=== PATIENT | female | born 1975 | race Caucasian/White ===

== ENCOUNTER 2019-07-01 10:33 | Emergency (ER) | payer BC, SELFPAY ==
[2019-07-01 11:03] VITALS: BP 130/82; PULSE 60; RESP 20; TEMP 37.4; O2SAT 96
--- NOTE | 2019-07-01 12:14 | ED.URI ---
HPI - URI/Sore Throat General Chief Complaint: Upper Respiratory Infection Stated Complaint: Cold/Flu symptoms/Fever Time Seen by Provider: 07/01/19 12:14 Source: patient and RN notes reviewed Mode of arrival: ambulatory Limitations: no limitations History of Present Illness HPI Narrative: 43-year-old female who presents to express care with complaints of cough, chills, chest aching with cough since yesterday and fever noted this morning of 102.F Patient states that she has had sinus pressure and ear pressure for the past 2 weeks. Patient denies any shortness of breath or any wheezing with lungs clear to accusation,SAO2 96% on room air. Patient states that she did not take a flu shot this year, also admits to tobacco abuse of 1 pack/day since age 18. MD elicited complaint: fever, cough, rhinorrhea, nasal congestion, sinus pain and other (ear pressure) Onset (ago): day(s) (1, 2 weeks of ear pressure nasal drainage) Consistency: constant Severity: moderate Pain scale (0-10): 4 Description of mucous: clear Able to tolerate fluids by mouth: Yes Exacerbating factors: changing head position and leaning forward Relieving factors: nothing Associated symptoms: fever, chills, myalgias, rhinorrhea, nasal congestion, cough and ear pain Treatments prior to arrival: acetaminophen Related Data Home Medications Medication Instructions Recorded Confirmed Synthroid 07/01/19 bupropion HCl 300 mg PO QAM 07/01/19 07/01/19 Allergies Allergy/AdvReac Type Severity Reaction Status Date / Time No Known Allergies Allergy Unknown Verified 07/01/19 11:05 Review of Systems Review of Systems: Narrative: CONSTITUTIONAL: Positive fever, chills, or sweats. EYES: Denies visual changes, redness, or discharge. ENT: Positive rhinorrhea, congestion pressure, no sore throat, pressure bilateral ears CARDIOVASCULAR: Positive chest pain with cough, denies palpitations, or edema. RESPIRATORY: Positive cough dyspnea. GASTROINTESTINAL: Denies abdominal pain, nausea, vomiting, or diarrhea. GENITOURINARY: Denies dysuria or hematuria. SKIN: Denies rash or itching. MUSCULOSKELETAL: Denies back pain, joint pain, body ache NEUROLOGIC: Positive headache, no numbness, or weakness. PSYCHIATRIC: Denies anxiety positive history of depression. All systems reviewed & are unremarkable except as noted in HPI and below PMFSH Past Medical History Medical History (Updated 07/01/19 @ 12:39 by Jennie Alas NP) Anxiety Depression Hypothyroid Family History Family History Father Diabetes mellitus Mother Diabetes mellitus Social History Social History (Updated 07/01/19 @ 12:33 by Jennie Alas NP) Smoking packs per day: 1 Smoking cigarettes per day: 20.0 Years smoked: 24 Smoking pack-years: 24.00 Smoking status: Current every day smoker Second hand tobacco smoke exposure: Yes Alcohol intake: current Comments At time of signature, agree with nursing past medical, surgical, social and family history. There is no relevant family history pertinent to the presenting complaint Exam Narrative: Exam Narrative: GENERAL: Ill-appearing, well-nourished, and in no acute distress. HEAD: Normocephalic, atraumatic. EYES: PERRLA and EOMI. ENT: Nares red, clear rhinorrhea no epistaxis. Mucous membranes moist.TM's normal with dull light reflex, Throat red with no lesions noted or tonsil enlargement, post nasal drainage present NECK: Supple.no lymphadenopathy CHEST: Clear to auscultation. No respiratory distress.cough with some pressure to chest with cough,SAO2 96% on room air HEART: Regular rate and rhythm. No murmur heard. Normal peripheral pulses. ABDOMEN: Soft, nontender, nondistended, normal active bowel sounds. EXTREMITIES: Normal range of motion. No edema. SKIN: Warm, dry, no rash. NEURO: No focal deficits. Alert and oriented x3. Course Vital Signs Vital signs: Vital Signs Temperature 37.4 C
== END 2019-07-01 12:40 | disposition home or self-care (01) ==
PROVIDERS: Emergency Provider Registered Nurse; PCP Family Medicine
DX: R05 Cough (principal); J01.80 Other acute sinusitis; F17.210 Nicotine dependence, cigarettes, uncomplicated; E03.9 Hypothyroidism, unspecified; F41.9 Anxiety disorder, unspecified; F32.9 Major depressive disorder, single episode, unspecified
CPT/HCPCS: 87804; 99213; G0463

== ENCOUNTER 2021-04-13 09:30 | Emergency (ER) | payer OTHER, SELFPAY ==
[2021-04-13 09:50] VITALS: BP 139/85; PULSE 86; RESP 20; TEMP 36.7; O2SAT 98
--- NOTE | 2021-04-13 10:20 | ED.URI ---
HPI - URI/Sore Throat General Chief Complaint: Upper Respiratory Infection Stated Complaint: Sinus Pain Time Seen by Provider: 04/13/21 10:04 Source: patient and RN notes reviewed Mode of arrival: ambulatory Limitations: no limitations History of Present Illness HPI Narrative: Patient presents today complaining of 5-day history of sinus pressure and ear pressure. Denies cough, fever, sore throat. She has been taking ibuprofen with some mild relief. MD elicited complaint: sinus pain Related Data Home Medications Medication Instructions Recorded Confirmed No Home Medications 04/13/21 04/13/21 Allergies Allergy/AdvReac Type Severity Reaction Status Date / Time No Known Allergies Allergy Unknown Verified 04/13/21 10:06 Review of Systems Review of Systems: CONSTITUTIONAL: Denies body aches, fever, chills, or sweats. EYES: Denies visual changes, redness, or discharge. ENT: Denies rhinorrhea, congestion, sore throat, or otalgia.+ Sinus pressure, Ear pressure CARDIOVASCULAR: Denies chest pain, palpitations, or edema. RESPIRATORY: Denies cough or dyspnea. GASTROINTESTINAL: Denies abdominal pain, nausea, vomiting, or diarrhea. GENITOURINARY: Denies dysuria or hematuria. SKIN: Denies rash, itching, or wounds. MUSCULOSKELETAL: Denies back pain, joint pain, or myalgia. NEUROLOGIC: Denies headache, numbness, tingling, or weakness. PSYCH: Denies depression or anxiety. [facility] Past Medical History Medical History Anxiety Depression Hypothyroid Family History Family History Father Diabetes mellitus Mother Diabetes mellitus Social History Social History Smoking packs per day: 1 Smoking cigarettes per day: 20.0 Years smoked: 24 Smoking pack-years: 24.00 Smoking status: Current every day smoker Second hand tobacco smoke exposure: Yes Alcohol intake: current Comments At time of signature, I have reviewed and agree with nursing past medical, surgical, social and family history unless otherwise noted. Please see nursing chart for further information. There is no relevant family history pertinent to the presenting complaint Exam Narrative: GENERAL: Well-appearing, well-nourished, and in no acute distress. HEAD: Normocephalic, atraumatic. EYES: EOMI. No redness or drainage. Conjunctivae normal. ENT: Mucous membranes pink and moist. Nares mildly congested. No rhinorrhea. TMs normal bilaterally. Throat normal with small amount of postnasal drainage. Uvula midline. NECK: Normal AROM. Supple. No lymphadenopathy. CHEST: No respiratory distress. Clear to auscultation. HEART: Regular rate and rhythm. No murmur appreciated. Normal peripheral pulses. EXTREMITIES: Normal range of motion. No edema. SKIN: Warm, dry, no rash. Capillary refill normal. Normal skin turgor. NEURO: No focal deficits. Alert and oriented x3. Gait steady. PSYCH: Normal affect. No signs of depression or anxiety. Course Vital Signs Vital signs: Vital Signs Temperature 98.1 F 04/13/21 09:50 Pulse Rate 86 04/13/21 09:50 Respiratory Rate 20 04/13/21 09:50 Blood Pressure 139/85 04/13/21 09:50 Pulse Oximetry 98 04/13/21 09:50 Temperature 98.1 F 04/13/21 09:50 Pulse Rate 86 04/13/21 09:50 Respiratory Rate 20 04/13/21 09:50 Blood Pressure 139/85 04/13/21 09:50 Pulse Oximetry 98 04/13/21 09:50 Reviewed. Pt has been instructed to follow up with her PCP regarding her elevated blood pressure today. MDM - URI/Sore Throat Differential Diagnosis Differential diagnosis: Likely upper respiratory infection and sinusitis Critical Care Time Critical Care Time Critical Care Time: No Discharge Plan Discharge Clinical Impression: Upper respiratory infection Qualifiers: URI type: unspecified URI Qualified Code(s): J06.9 - A
== END 2021-04-13 10:31 | disposition home or self-care (01) ==
PROVIDERS: Emergency Provider Nurse Practitioner; PCP Family Medicine
DX: J06.9 Acute upper respiratory infection, unspecified (principal); E03.9 Hypothyroidism, unspecified; F17.210 Nicotine dependence, cigarettes, uncomplicated
CPT/HCPCS: 99211; G0463

== ENCOUNTER 2021-07-20 09:47 | Outpatient (CLI) | payer OTHER, SELFPAY ==
[2021-07-20 18:58] LABS: Hemoglobin 14.4 g/dL (12.0-15.0); Mean Corpuscular HGB Conc 34.3 g/dl (32-36); Mean Corpuscular Volume 96.1 fl (80-100); Mean Platelet Volume 9.8 fl (7.4-10.4); Platelet Count Result 254 k/mm3 (150-375); Red Blood Count 4.37 M/mm3 (4.2-5.4); Red Cell Distribution Width 11.9 % (11.5-14.5); White Blood Count 5.5 K/mm3 (4.5-10.0)
[2021-07-20 19:09] LABS: Alanine Aminotransferase 26 U/L (4-35); Albumin Level 4.3 g/dL (3.5-5.1); Alkaline Phosphatase 59 U/L (38-126); Anion Gap 7 mmol/L (8-16); Aspartate Amino Transferase 29 U/L (14-36); Bilirubin,Total 0.5 mg/dL (0.2-1.3); Blood Urea Nitrogen 16 mg/dL (7-17); Calcium 9.1 mg/dL (8.4-10.2); Carbon Dioxide 27 mmol/L (22-30); Chloride 104 mmol/L (98-107); Cholesterol 211 mg/dL (0-200); Estimated Glomerular Filt Rate > 60; Glucose 96 mg/dL (65-110); HDL Direct 64 mg/dL; Potassium 4.1 mmol/L (3.4-5.0); Sodium 138 mmol/L (137-145); Triglycerides 103 mg/dL (<150)
[2021-07-20 19:10] LABS: Hemoglobin A1C 4.9 % (<5.7)
[2021-07-20 19:19] LABS: LDL Cholesterol Direct 111 mg/dL
[2021-07-20 19:31] LABS: Free T4 Free Thyroxine 1.02 ng/mL (0.78-2.19)
[2021-07-22 07:34] LABS: Triiodothyronine T3 Free 2.5 pg/mL (2.3-4.2)
[2021-07-24 06:07] LABS: Thyroid Peroxidase Antibodies <1 IU/mL (<9)
== END 2021-07-20 09:48 | disposition home or self-care (01) ==
LOC: ANHBWCLAB 09:48
PROVIDERS: PCP Family Medicine; Visit Provider Family Medicine
DX: Z00.00 Encounter for general adult medical examination without abnormal findings (principal); E66.3 Overweight; E03.9 Hypothyroidism, unspecified; F41.9 Anxiety disorder, unspecified; F32.9 Major depressive disorder, single episode, unspecified
CPT/HCPCS: 36415; 80053; 80061; 83036; 84439; 84443; 84481; 85027; 86376

== ENCOUNTER → 2022-03-20 11:48 | Outpatient (CLI) | payer OTHER, SELFPAY ==
--- NOTE | ~2022-03-20 | US_ITS ---
US thyroid INDICATION: Thyroid goiter. Clinical history of previous bilateral benign thyroid biopsies. TECHNIQUE: Real-time sonographic images of the thyroid gland were obtained. COMPARISON: Ultrasound dated 06/12/2015 FINDINGS: The right thyroid lobe measures 4.9 x 1.2 x 1.3 cm. The left thyroid lobe measures 5.3 x 2 x 2.5 cm. In the right thyroid lobe there is an oval partially cystic slightly hyperechoic circumscr ibed mass measuring 9 x 6 x 7 mm, wider than tall without internal echogenic foci, TR 2. In the right lobe there is an oval circumscribed hypoechoic mass which is wider than tall, solid, smoothly marginated without internal echogenic foci measuring 1.4-6 0.9 x 0.97, TR 4. This mass is sl ightly larger than on prior examination, although does not meet sonographic criteria for biopsy. In t he left lobe there is a heterogeneous predominantly hyperechoic mass which is wider than tall measuri ng 3.7 x 1.9 x 2 cm with internal vascularity in this mass appears essentially stable in size compare d with prior examination. Correlate for history of previous biopsy of this nodule. If biopsy of this nodule has not been performed, further evaluation with fine-needle aspiration recommended using ultra sound guidance.. Normal vascular flow is present. IMPRESSION: 1. Dominant left thyroid mass which is heterogeneous predominantly hyperechoic mass which is wider t jacobson tall measuring 3.7 x 1.9 x 2 cm with internal vascularity in this mass appears essentially stable in size compared with prior examination. Correlate for history of previous biopsy of this nodule. If biopsy of this nodule has not been performed, further evaluation with fine-needle aspiration recomme nded using ultrasound guidance. 2: Right thyroid nodules, the largest of which is slightly increased in size compared with prior stud y, although does not meet sonographic criteria for biopsy. Reviewed, dictated and finalized at location B. [facility] IMPRESSION: 1. Dominant left thyroid mass which is heterogeneous predominantly hyperechoic mass which is wider than tall measuring 3.7 x 1.9 x 2 cm with internal vascula rity in this mass appears essentially stable in size compared with prior examin ation. Correlate for history of previous biopsy of this nodule. If biopsy of th is nodule has not been performed, further evaluation with fine-needle aspiratio n recommended using ultrasound guidance. 2: Right thyroid nodules, the largest of which is slightly increased in size co mpared with prior study, although does not meet sonographic criteria for biopsy .
== END ==
PROVIDERS: PCP Family Medicine; Visit Provider Family Medicine
DX: E04.2 Nontoxic multinodular goiter (principal); E03.9 Hypothyroidism, unspecified
CPT/HCPCS: 76536

== ENCOUNTER → 2022-05-11 16:48 | Outpatient (CLI) | payer OTHER, SELFPAY ==
--- NOTE | ~2022-05-11 | MM_ITS ---
EXAMINATION: MM screening mckenzie BI w jeancarlos HISTORY: Screening mammogram TECHNIQUE: Craniocaudal and mediolateral oblique 3-D tomosynthesis images were obtained and synthetic 2-D images were generated. CAD analysis was submitted and interpreted. COMPARISON: 09/28/2013 bilateral diagnostic mammography and bilateral breast ultrasound examination BREAST PARENCHYMAL COMPOSITION: There are scattered areas of fibroglandular density. FINDINGS: There is no evidence of suspicious mass, calcification, or architectural distortion to sugg est malignancy in either breast. There has been no suspicious interval change. IMPRESSION: 1. No mammographic evidence of malignancy. 2. Recommend routine screening mammography in one year. BI-RADS Category 1: Negative Reviewed, dictated and finalized at location A. [employer]
== END ==
PROVIDERS: PCP Nurse Practitioner; Visit Provider Nurse Practitioner
DX: Z12.31 Encounter for screening mammogram for malignant neoplasm of breast (principal)
CPT/HCPCS: 77063; 77067

== ENCOUNTER 2022-08-27 10:27 | Outpatient (CLI) | payer OTHER, SELFPAY ==
[2022-08-27 18:38] LABS: Basophils Absolute Auto 0.1 K/mm3 (0.0-0.1); Basophils Percent Auto 1.9 % (0.2-1.2); Eosinophils Absolute Auto 0.2 K/mm3 (0-0.3); Eosinophils Percent Auto 3.4 % (0-4.4); Hematocrit 41.2 % (37.0-47.0); Hemoglobin 13.5 g/dL (12.0-15.0); Immature Granulocyte Absolute 0.02 K/mm3 (0.00-0.031); Immature Granulocyte Percent A 0.4 % (0-0.5); Lymphocytes Absolute Auto 1.42 K/mm3 (0.9-3.2); Lymphocytes Percent Auto 26.9 % (18.3-44.2); Mean Corpuscular HGB Conc 32.8 g/dl (32-36); Mean Corpuscular Hemoglobin 31.8 pg (26-34); Mean Corpuscular Volume 97.2 fl (80-100); Mean Platelet Volume 10.3 fl (7.4-10.4); Monocytes Absolute Auto 0.4 K/mm3 (0.1-0.6); Neutrophils Absolute Auto 3.2 K/mm3 (1.3-6.7); Neutrophils Percent Auto 60.4 % (45.5-73.1); Platelet Count Result 230 k/mm3 (150-375); Red Blood Count 4.24 M/mm3 (4.2-5.4); Red Cell Distribution Width 11.9 % (11.5-14.5); White Blood Count 5.3 K/mm3 (4.5-10.0)
[2022-08-27 18:57] LABS: Alanine Aminotransferase 19 U/L (6-35); Albumin Level 4.3 g/dL (3.5-5.1); Alkaline Phosphatase 56 U/L (38-126); Anion Gap 6 mmol/L (8-16); Aspartate Amino Transferase 39 U/L (14-36); Bilirubin,Total 0.8 mg/dL (0.2-1.3); Blood Urea Nitrogen 14 mg/dL (7-17); Calcium 8.1 mg/dL (8.4-10.2); Carbon Dioxide 28 mmol/L (22-30); Chloride 104 mmol/L (98-107); Cholesterol 196 mg/dL (0-200); Estimated Glomerular Filt Rate > 60; Glucose 74 mg/dL (65-110); HDL Direct 61 mg/dL; Potassium 3.7 mmol/L (3.4-5.0); Sodium 138 mmol/L (137-145); Triglycerides 91 mg/dL (<150)
[2022-08-27 19:08] LABS: LDL Cholesterol Direct 105 mg/dL
[2022-08-27 19:28] LABS: Thyroid Stimulating Hormone 0.957 uIU/mL (0.465-4.680)
== END 2022-08-27 10:28 | disposition home or self-care (01) ==
LOC: ANHBWCLAB 10:28
PROVIDERS: PCP Family Medicine; Visit Provider Nurse Practitioner Family
DX: Z00.00 Encounter for general adult medical examination without abnormal findings (principal); E03.9 Hypothyroidism, unspecified
CPT/HCPCS: 36415; 80053; 80061; 84443; 85025

== ENCOUNTER 2023-03-07 10:49 | Outpatient (CLI) | payer OTHER, SELFPAY ==
[2023-03-07 19:25] LABS: Hematocrit 41.8 % (37.0-47.0); Hemoglobin 13.5 g/dL (12.0-15.0); Mean Corpuscular HGB Conc 32.3 g/dl (32-36); Mean Corpuscular Hemoglobin 32.5 pg (26-34); Mean Corpuscular Volume 100.5 fl (80-100); Mean Platelet Volume 10.3 fl (7.4-10.4); Platelet Count Result 207 k/mm3 (150-375); Red Blood Count 4.16 M/mm3 (4.2-5.4); Red Cell Distribution Width 12.9 % (11.5-14.5); White Blood Count 4.7 K/mm3 (4.5-10.0)
[2023-03-07 20:00] LABS: Alanine Aminotransferase 17 U/L (6-35); Albumin Level 4.5 g/dL (3.5-5.1); Alkaline Phosphatase 44 U/L (38-126); Anion Gap 4 mmol/L (8-16); Aspartate Amino Transferase 48 U/L (14-36); Bilirubin,Total 0.9 mg/dL (0.2-1.3); Blood Urea Nitrogen 15 mg/dL (7-17); Calcium 8.4 mg/dL (8.4-10.2); Carbon Dioxide 27 mmol/L (22-30); Chloride 103 mmol/L (98-107); Estimated Glomerular Filt Rate > 60; Glucose 83 mg/dL (65-110); Potassium 4.2 mmol/L (3.4-5.0); Sodium 134 mmol/L (137-145)
== END 2023-03-07 10:50 | disposition home or self-care (01) ==
LOC: ANHBWCLAB 10:50
PROVIDERS: PCP Family Medicine; Visit Provider Family Medicine
DX: F32.9 Major depressive disorder, single episode, unspecified (principal); F41.9 Anxiety disorder, unspecified; E03.9 Hypothyroidism, unspecified; E04.2 Nontoxic multinodular goiter; E07.9 Disorder of thyroid, unspecified; F17.200 Nicotine dependence, unspecified, uncomplicated
CPT/HCPCS: 36415; 80053; 84443; 85027

== ENCOUNTER 2023-09-08 08:09 | Outpatient (CLI) | payer OTHER, SELFPAY ==
[2023-09-08 19:43] LABS: Alanine Aminotransferase 15 U/L (6-35); Albumin Level 4.4 g/dL (3.5-5.1); Alkaline Phosphatase 66 U/L (38-126); Aspartate Amino Transferase 45 U/L (14-36); Bilirubin,Total 0.4 mg/dL (0.2-1.3)
[2023-09-08 20:02] LABS: Hepatitis B Surface Antigen Negative (Negative)
[2023-09-08 20:07] LABS: HAV RESULT Negative (Negative); Hepatitis B Core IgM Result Negative (Negative)
[2023-09-08 20:19] LABS: Hepatitis C Virus Antibody Negative (Negative)
== END 2023-09-08 08:10 | disposition home or self-care (01) ==
LOC: ANHBWCLAB 08:10
PROVIDERS: PCP Family Medicine; Visit Provider Family Medicine
DX: E03.9 Hypothyroidism, unspecified (principal); R74.8 Abnormal levels of other serum enzymes
CPT/HCPCS: 36415; 80074; 80076; 84443

== ENCOUNTER 2024-02-07 06:54 | Outpatient (CLI) | payer OTHER, SELFPAY ==
--- NOTE | ~2024-02-07 | MM_ITS ---
EXAMINATION: MM screening mckenzie BI w jeancarlos HISTORY: Screening TECHNIQUE: Craniocaudal and mediolateral oblique 3-D tomosynthesis images were obtained and synthetic 2-D images were generated. CAD analysis was submitted and interpreted. COMPARISON: Comparison to multiple prior studies sequentially, with oldest reviewed study dated 09/28. BREAST PARENCHYMAL COMPOSITION: Not dense: There are scattered areas of fibroglandular density. FINDINGS: There is no evidence of suspicious mass, calcification, or architectural distortion to sugg est malignancy in either breast. There has been no suspicious interval change. IMPRESSION: 1. No mammographic evidence of malignancy. 2. Recommend routine screening mammography in one year. BI-RADS Category 1: Negative Reviewed, dictated and finalized at location B.
== END 2024-02-07 06:55 | disposition home or self-care (01) ==
LOC: MICIMG 06:55
PROVIDERS: PCP Obstetrics & Gynecology; Visit Provider Family Medicine
DX: Z12.31 Encounter for screening mammogram for malignant neoplasm of breast (principal)
CPT/HCPCS: 77063; 77067

== ENCOUNTER 2024-02-26 14:01 | Emergency (ER) | payer OTHER, SELFPAY ==
[2024-02-26 14:05] VITALS: BP 145/86; PULSE 90; RESP 17; TEMP 37.1; O2SAT 100
--- NOTE | 2024-02-26 14:57 | ED.GENADULT ---
HPI - General Adult General Chief complaint: Upper Respiratory Infection Stated complaint: Sore Throat/Cough Source: patient Mode of arrival: ambulatory Limitations: no limitations History of Present Illness HPI narrative: Patient presents for evaluation of sick symptoms for last week. Symptoms include fever, sinus congestion, sore throat, cough. No nausea, vomiting, diarrhea. Her was here yesterday and was diagnosed with sinusitis. She is taking Sudafed and dayquil for her symptoms. Related Data Allergies Allergy/AdvReac Type Severity Reaction Status Date / Time No Known Allergies Allergy Unknown Verified 02/26/24 14:05 Review of Systems Review of Systems: CONSTITUTIONAL: Reports fever. Denies chills, or sweats. EYES: Denies visual changes, redness, or discharge. ENT: Reports sinus congestion and sore throat. Denies otalgia. CARDIOVASCULAR: Denies chest pain, palpitations, or edema. RESPIRATORY: Reports cough. Denies dyspnea. GASTROINTESTINAL: Denies abdominal pain, nausea, vomiting, or diarrhea. GENITOURINARY: Denies dysuria or hematuria. SKIN: Denies rash or itching. MUSCULOSKELETAL: Denies back pain, joint pain, or myalgia. NEUROLOGIC: Denies headache, numbness, dizziness, or weakness. PSYCHIATRIC: Denies anxiety or depression. COUNTS INCLUDE 234 BEDS AT THE [facility] Past Medical History Medical History Anxiety Depression Hypothyroid Family History Family History Father Diabetes mellitus Mother Diabetes mellitus Social History Social History Smoking packs per day: 1 Smoking cigarettes per day: 20.0 Years smoked: 24 Smoking pack-years: 24.00 Smoking status: Current every day smoker Second hand tobacco smoke exposure: Yes Alcohol intake: current Lack of Transportation: No Lack of Food: Never True Current Housing: I Have Housing Concerned About Future Housing: No Difficulty Paying Gas/Electric Bills: No Difficulty Paying for Meds: No Currently Unemployed: No Education: High School Diploma/GED Difficulty w/ Childcare or Family Care: No Exam Narrative: GENERAL: Well-appearing, well-nourished, and in no acute distress. HEAD: Normocephalic, atraumatic. EYES: PERRLA and EOMI. ENT: Nares clear, no rhinorrhea or epistaxis. Mucous membranes moist. Oropharynx without tonsillar hypertrophy exudate or other lesions. Bilateral TMs pearly king nonbulging NECK: Supple. No adenopathy or masses. No carotid bruits or JVD CHEST: Clear to auscultation. No respiratory distress. No wheezes rales or rhonchi HEART: Regular rate and rhythm. No murmur heard. Normal peripheral pulses. ABDOMEN: Soft, nontender, nondistended, normal active bowel sounds. EXTREMITIES: Normal range of motion. No edema. SKIN: Warm, dry, no rash. NEURO: No focal deficits. Alert and oriented x3. PSYCH: Normal mood and affect. Course Course Emergency Course: This is a 48-year-old female who presented for evaluation of sick symptoms. She meets criteria for ABRS based upon fever and duration of time in which she has been symptomatic. Will treat with Augmentin Medrol Dosepak. Increase hydration. [id number] agents for symptom management. Follow up with primary provider. Go to the ER for worsening symptoms. Patient in agreement with plan of care. Level of Care: Express Care Visit Vital Signs Vital signs: Vital Signs Temperature 37.1 C 02/26/24 14:05 Pulse Rate 90 02/26/24 14:05 Respiratory Rate 17 02/26/24 14:05 Blood Pressure 145/86 H 02/26/24 14:05 Pulse Oximetry 100 02/26/24 14:05 Oxygen Delivery Room Air 02/26/24 14:05 Temperature 37.1 C 02/26/24 14:05 Pulse Rate 90 02/26/24 14:05 Respiratory Rate 17 02/26/24 14:05 Blood Pressure 145/86 H 02/26/24 14:05 Pulse Oximetry 100 02/26/24 14:05 Oxygen Delivery Room Air 02/26/24 14:05 Medical Decision Making Vital Signs Vital Signs: Vital Signs Temperature 37.1 C 02/26/24 14:05 Pulse Rate 90 02/26/24 14:05 Respiratory Rate 17 02/26/24 14:05 Blood Pressure 145/86 H 02/26/24 14:05 Pulse Oximetry 100 02/26/24 14:05 Oxygen Delivery Room Air 02/26/24 14:05 Temperature 37.1 C 02/26/24 14:05 Pulse Rate 90 02/26/24 14:05 Respiratory Rate 17 02/26/24 14:05 Blood Pressure 145/86 H 02/26/24 14:05 Pulse Oximetry 100 02/26/24 14:05 Oxygen Delivery Room Air 02/26/24 14:05 Discharge Plan Discharge Clinical Impression: Sinusitis Patient Disposition: Home, Self-Care Condition: Stable Instructions: Antibiotic Form, Sinusitis (ED) Patient Language: Tajik Prescriptions: New amoxicillin-pot clavulanate 875-125 mg tablet 1 tablet PO Q12H Qty: 20 0RF methylprednisolone [Medrol (Gigi)] 4 mg tablets,dose pack See Rx Instructions .ROUTE .COMPLEX Qty: 21 0RF Rx Instructions: for 6 days No Action levothyroxine 125 mcg tablet 125 mcg PO DAILY Qty: 90 1RF Follow-up/Referrals: Papa Chowdhury MD [Primary Care Provider] - Time of Disposition: 14:34
== END 2024-02-26 14:34 | disposition home or self-care (01) ==
PROVIDERS: Emergency Provider Nurse Practitioner; PCP Family Medicine
DX: J32.9 Chronic sinusitis, unspecified (principal); F17.210 Nicotine dependence, cigarettes, uncomplicated; E03.9 Hypothyroidism, unspecified
CPT/HCPCS: 99213; G0463

== ENCOUNTER 2024-07-16 10:52 | Emergency (ER) | payer OTHER, SELFPAY ==
[2024-07-16 10:56] VITALS: BP 122/79; PULSE 80; RESP 16; TEMP 36.2; O2SAT 100
--- NOTE | 2024-07-16 11:36 | ED_ITS ---
HPI - General Adult General Chief complaint: Ear Stated complaint: Ear Pain/Sinus Problem Time Seen by Provider: 07/16/24 11:27 Source: patient and RN notes reviewed Mode of arrival: ambulatory Limitations: no limitations History of Present Illness HPI narrative: Patient presents today with a 4 day history of cough, nasal congestion and sinus pressure, bilateral ear pressure, chills, sweats, possible subjective fever. States symptoms have slightly improved today, but she wanted to make sure she does not have an ear infection. Denies shortness of breath or chest pain. No history of asthma or COPD. She is a nonsmoker. She has tried Mucinex and Tylenol without relief. States she has 2 family members that are sick with similar symptoms. Related Data Allergies Allergy/AdvReac Type Severity Reaction Status Date / Time No Known Allergies Allergy Unknown Verified 07/16/24 11:01 Review of Systems Review of Systems: CONSTITUTIONAL: Denies body aches. + chills, sweats, subjective fever EYES: Denies visual changes, redness, or discharge. ENT: Denies rhinorrhea, sore throat. + bilateral ear pressure, congestion, sinus pressure CARDIOVASCULAR: Denies chest pain, palpitations, or edema. RESPIRATORY: Denies dyspnea.+ cough GASTROINTESTINAL: Denies abdominal pain, nausea, vomiting, or diarrhea. GENITOURINARY: Denies dysuria or hematuria. SKIN: Denies rash, itching, or wounds. MUSCULOSKELETAL: Denies back pain, joint pain, or myalgia. NEUROLOGIC: Denies headache, numbness, tingling, or weakness. PSYCH: Denies depression or anxiety. [facility] Past Medical History Medical History Anxiety Depression Hypothyroid Family History Family History Father Diabetes mellitus Mother Diabetes mellitus Social History Social History (Updated 07/16/24 @ 11:38 by Ethel Mosquera [facility], ) Years smoked: 24 Smoking status: Former smoker Second hand tobacco smoke exposure: Yes Alcohol intake: current Lack of Transportation: No Lack of Food: Never True Current Housing: I Have Housing Concerned About Future Housing: No Difficulty Paying Gas/Electric Bills: No Difficulty Paying for Meds: No Currently Unemployed: No Education: High School Diploma/GED Difficulty w/ Childcare or Family Care: No Comments At time of signature, I have reviewed and agree with nursing past medical, surgical, social and family history unless otherwise noted. Please see nursing chart for further information. There is no relevant family history pertinent to the presenting complaint Exam Narrative: GENERAL: Well-appearing, well-nourished, and in no acute distress. HEAD: Normocephalic, atraumatic. EYES: EOMI. No redness or drainage. Conjunctivae normal. ENT: Mucous membranes pink and moist. Nares mildly congested. Bilateral frontal and maxillary sinus tenderness. No rhinorrhea. TMs normal bilaterally. Throat normal. Uvula midline. NECK: Normal AROM. Supple. No lymphadenopathy. CHEST: No respiratory distress. Clear to auscultation. HEART: Regular rate and rhythm. No murmur appreciated. EXTREMITIES: Normal range of motion. No edema. SKIN: Warm, dry, no rash. Capillary refill normal. Normal skin turgor. NEURO: No focal deficits. Alert and oriented x3. Gait steady. PSYCH: Normal affect. No signs of depression or anxiety. Course Course Level of Care: Express Care Visit Vital Signs Vital signs: Vital Signs Temperature 97.2 F L 07/16/24 10:56 Pulse Rate 80 07/16/24 10:56 Respiratory Rate 16 07/16/24 10:56 Blood Pressure 122/79 07/16/24 10:56 Pulse Oximetry 100 07/16/24 10:56 Oxygen Delivery Room Air 07/16/24 10:56 Temperature 97.2 F L 07/16/24 10:56 Pulse Rate 80 07/16/24 10:56 Respiratory Rate 16 07/16/24 10:56 Blood Pressure 122/79 07/16/24 10:56 Pulse Oximetry 100 07/16/24 10:56 Oxygen Delivery Room Air 07/16/24 10:56 Reviewed Medical Decision Making MDM Narrative Medical decision making narrative: Patient has declined testing for influenza or COVID. Symptoms likely viral in etiology. Discussed [id number] medication use and duration of illness. No prescription medications indicated at this time. Anticipatory guidance given. Differential Diagnosis Differential Diagnosis: URI, AOM, sinusitis rhinitis, bronchitis, COVID, influenza Vital Signs Vital Signs: Vital Signs Temperature 97.2 F L 07/16/24 10:56 Pulse Rate 80 07/16/24 10:56 Respiratory Rate 16 07/16/24 10:56 Blood Pressure 122/79 07/16/24 10:56 Pulse Oximetry 100 07/16/24 10:56 Oxygen Delivery Room Air 07/16/24 10:56 Temperature 97.2 F L 07/16/24 10:56 Pulse Rate 80 07/16/24 10:56 Respiratory Rate 16 07/16/24 10:56 Blood Pressure 122/79 07/16/24 10:56 Pulse Oximetry 100 07/16/24 10:56 Oxygen Delivery Room Air 07/16/24 10:56 Critical Care Time Critical Care Time Critical Care Time: No Discharge Plan Discharge Clinical Impression: Upper respiratory infection Qualifiers: URI type: unspecified URI Qualified Code(s): J06.9 - Acute upper respiratory infection, unspecified Patient Disposition: Home, Self-Care Condition: Stable Instructions: Upper Respiratory Infection (DC) Additional Instructions: Your symptoms are likely due to a viral illness, which is not treated with antibiotics. Virus symptoms can last for up to 7-10days. Take Tylenol or ibuprofen for pain or fever. Consider starting some Sudafed and Flonase to help with your sinus and ear pressure. Rest and stay hydrated. Follow up with your PCP in 7 days if symptoms are not improving. Go to the ER immediately if you de velop shortness of breath, difficulty swallowing, or any other concerning symptoms. Your blood pressure was elevated above 120/80 today at Urgent Care. This puts you above the threshold for follow up. Please schedule a followup visit with your personal physician as soon as possible, for further evaluation and treatment. Even blood pressure exceeding 120/80 may indicate pre-hypertension. Patient Language: Anguill[place] Prescriptions: No Action levothyroxine 125 mcg tablet 125 mcg PO DAILY Qty: 90 1RF Follow-up/Referrals: Papa Chowdhury MD [Primary Care Provider] - Time of Disposition: 11:40
--- OUTSIDE RECORDS SUMMARY | 2024-07-16 13:19 | XMS_ITS | Data Portability ---
Author Organization [facility] Address [address] [place] [address] [place] [address] Care Team Providers Care Assistant Manager Retail Name Role Phone LOS LARKIN Primary Care Provider Assessment Encounter Date Assessment Date Assessment LastModified by Organization Details LastModified Time 11/30/2021 11/30/2021 Annual gynecological exam performed. Patient will come back in a year unless there are new symptoms. [email or web address] Not available 11/30/2021 10:26:28 12/27/2023 12/27/2023 Annual gynecological exam performed. Patient will come back in a year unless there are new symptoms. [email or web address] Not available 12/27/2023 12:01:23 02/06/2024 02/06/2024 Annual gynecological exam performed. Patient will come back in a year unless there are new symptoms. [email or web address] Not available 02/06/2024 11:10:50 Plan of Treatment Reminders Order Date Submit Date Provider Last Modified By Organization Details Last Modified Time Details Appointments None recorded . Lab pregnanc y test, urine 2021 022 [email or web address] [facility], [address], [place], [address], 10:41:00 Referral None recorded . Procedures None recorded . Surgeries None recorded . Imaging US, pelvis, complete 2021 022 [email or web address] [facility], [address], [place], [address], 3 16:53:42 US, pelvis 2021 022 [email or web address] [facility], [address], [place], [address], 2 20:25:08 US, transvag inal 2021 022 [email or web address] [facility], [address], [place], [address], 2 20:25:08 US, pelvis, complete 2021 022 [email or web address] [facility], [address], [place], [address], 2 12:20:37 MAMMO, screenin g, bilatera l 2021 022 FARTUN [facility], [address], [place], [address], 3 07:24:34 Medication Orders None recorded . Patient TargetsNo targets recorded. Patient InstructionsNo instructions recorded. Reason for Referral None Reported. Results Created Date Observation Date Name Description Value Unit Range Abnormal Flag Note LastModifiedBy Organization Detail LastModifiedTime 12/01/19 22 11/30/2021 IMAGE GUIDE D PAP AND HPV REGAR DLESS image guided Pap, HPV regardless of Pap result SEE RESULT S BELOW CASE REPOR T: Cytol ogy Gynec ologi jermaine Repor t Case: [id number] Autho cam g Provi eliseo: Elke Vieira, KIM Colle cted: 11/30 1207 Order ing Locat ion: [place] [facility] Recei simeon: 12/01 0822 First Scree n: Mervat Crespo Speci men: Scree alireza Pap - Image d, Cervi x STATE MENT OF ADEQU ACY: Satis facto ry for evalu ation Trans forma tion zone compo nent prese nt FINAL DIAGN OSIS: Negat drew for Intra epith elial Lesio n or Mak العراقي (NIL) . Shift in nuria sugge stive of bacte rial vagin osis. Elect daniellesindy zelaya stacy d by Mervat Crespo on 022 at 9:16 PM ----- ----- ----- ----- ----- ----- ----- ----- ----- ----- ----- ----- ----- ----- ----- ----- ----- ---- HPV RESUL TS: HPV mRNA E6/E7 : No HPV mRNA Detec belén NOTE: This high risk HPV mRNA assay detec ts fourt een high- risk HPV types (16, 18, 31, 33, 35, 39, 45, 51, 52, 56, 58, 59, 66, 68) witho ut diffe renti ation . COMME NT: Slide scree williamausten cantrell due to rejec tion by the Thinp rep Imagi ng Syste m. CLINI JERMAINE INFOR MATIO N: Menst rual Statu s: LMP (if appli cable ): Clini jermaine Histo ry/Pr eviou s Pap: Type of Neopl saloni (if appli cable ): Signi fican t Clini jermaine Findi ngs: Other Histo ry: Hormo maribel (if appli cable ): PAP EDUCA SYLVAIN L NOTE: The Pap Test is a scree alireza test with an inher ent false negat drew rate. Liqui d-bas ed sampl ing may decre ase, but will not elimi kelly, false negat drew resul ts. A negat drew resul t does not precl ude the prese nce and/o r devel opmen t of disea se, since the prese nce of abnor mal cells in the sampl e depen ds on the locat ion of the lesio n and sampl ing techn ique. Gerardo nued regul ar scree alireza is the best metho d of cance r preve ntion . If repor belén cytol ogic findi ng do not corre late with physi jermaine and/o r histo rical findi ngs, furth er inves tigat ion is recom elie d, as miguel ángeli austen burrows nted. Not Available [facility] [address] [place] [address], [phone], 12/03/2021 22:17:42 12/01/19 22 11/30/2021 CT/GC (YADY) , THINP REP VIAL chlamydia trachomatis, PCR Negati ve negati ve Not Available [facility] [address] [place] [address], [phone], 12/03/2021 22:17:43 12/01/19 22 11/30/2021 CT/GC (YADY) , THINP REP VIAL neisseria gonorrhoeae, PCR Negati ve negati ve Not Available [facility] [address] [place] [address], [phone], 12/03/2021 22:17:43 12/01/19 22 11/30/2021 TRICH OMONA S VAGIN MAURO (RRNA ) trichomonas vaginalis ribosomal RNA (rrna) Negati ve negati ve Not Available [facility] [address] [place] [address], [phone], 12/03/2021 22:17:43 12/01/19 22 11/30/2021 pregn rubén test, urine HCG negati ve Not Available [facility] [address], [place], [address], 11/30/2021 10:40:46 12/18/19 22 12/17/2021 US, pelvi s No observ ation record ed. [email or web address] [facility] [address], [place], [address], 12/17/2021 13:08:26 12/18/19 22 12/17/2021 US, trans vagin al No observ ation record ed. [email or web address] [facility] [address], [place], [address], 12/17/2021 13:08:36 12/18/19 22 12/17/2021 US, pelvi s No observ ation record ed. elpidio [facility], [place], [address], 12/21/2021 09:52:53 05/12/19 23 05/11/2022 MAMMO , scree alireza, bilat eral No observ ation record ed. [email or web address] [facility] [address], [place], [address], 05/17/2022 17:09:03 02/07/20 24 02/07/2024 MAMMO , scree alireza, bilat eral No observ ation record ed. [facility] [address], [place], [address], 02/22/2024 04:02:16 Result Notes None recorded. Problems Name Problem SNOMED Code Status Onset Date Resolution Date Notes Provider Name and Address Organization Details Recorded Time Breast lump 95994309 Active 2013 Lump or mass in breast;P ractice ID: 0001 Not Available [facility] 0 21:23:38 Screenin g for malignan t neoplasm of rectum Active 2013 Screenin g for malignan t neoplasm s of the rectum;P ractice ID: 0001 Not Available [facility] 0 21:23:38 Eruption 946979967 Active 2014 Rash and other nonspeci fic skin eruption ;Practic e ID: 0001 Not Available [facility] 0 21:23:38 Localize d swelling , mass and lump, neck Active 2015 Localize d swelling , mass and lump, neck;Pra ctice ID: 0001 Not Available [facility] 0 21:23:[address] Concept Active 2015 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 ;Practic e ID: 0001 Not Available [facility] 0 21:23:38 Removal of intraute rine device Active 2017 Encounte r for removal of intraute rine contrace ptive device;P ractice ID: 0001 Not Available [facility] 0 21:23:38 Emotiona l state finding Active 2018 Other specifie d anxiety disorder s;Practi ce ID: 0001 Not Available [facility] 0 21:23:38 Insertio n of intraute rine contrace ptive device Active 2018 Encounte r for insertio n of intraute rine contrace ptive device;P ractice ID: 0001 Not Available [facility] 0 21:23:39 Pregnanc y test negative 057017971 Active 2018 Encounte r for pregnanc y test, result negative ;Practic e ID: 0001 Not Available [facility] 0 21:23:39 Contrace ptive sheath status 355800310 Active 2018 Encounte r for routine checking of intraute rine contrace p dev;Prac srinivasa ID: 0001 Not Available [facility] 0 21:23:[address] Concept Active 2015 Well woman check w/ abnormal finding; Recorded Elsewher e: No [facility] [place] Performer tyrell: N Practi ce ID: 0001 Jarret lable Time: 09:30:00 AM Not Available [facility] 0 21:23:39 Insertio n of intraute rine contrace ptive device Completed 201101/11/2012 INSERTIO N OF IUD;Danilo rded Elsewher e: No Locat ion: [facility] S ource: EHR [place] Performer tyrell: N Practi ce ID: 0001 Jarret lable Time: 08:45:00 AM Not Available [facility] 0 21:23:39 Removal of intraute rine device Completed 201101/11/2012 REMOVAL OF IUD;Danilo rded Elsewher e: No Locat ion: [place] [facility] S ource: EHR [place] Performer tyrell: N Practi ce ID: 0001 Jarret lable Time: 09:30:00 AM Not Available [facility] 0 21:23:[address] Concept Active 2018 Encntr for general adult medical exam w/o abnormal findings ;Recorde d Elsewher e: No Locat ion: Sashamichaela vinny [facility] S ource: EHR [place] Performer tyrell: N Wandati ce ID: 0001 Jarret lable Time: 10:30:00 AM Not Available [facility] 0 21:23:39 Speciali zed medical examinat ion Completed 201001/11/2012 Gynecolo gical Examinat ion;Danilo rded Elsewher e: No [facility] S ource: EHR [place] Performer tyrell: N Wandati ce ID: 0001 Jarret lable Time: 09:30:00 AM Not Available [facility] 0 21:23:40 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;Re corded Elsewher e: No [facility] S ource: EHR [place] Performer tyrell: N Wandati ce ID: 0001 Jarret lable Time: 10:30:00 AM Not Available [facility] 0 21:23:40 Overweig ht 221309246 Active 2010 Overweig ht;Recor ded Elsewher e: No Locat ion: [facility] S ource: EHR [place] Performer tyrell: N Wandati ce ID: 0001 Jarret lable Time: 09:30:00 AM Not Available [facility] 0 21:23:40 Screenin g for malignan t neoplasm of cervix Active 2010 Screenin g for malignan t neoplasm s of the cervix;R ecorded Elsewher e: No Locat ion: [facility] S ource: EHR [place] Performer tyrell: N Wandati ce ID: 0001 Jarret lable Time: 09:30:00 AM Not Available [facility] 0 21:23:40 Problem Notes None recorded. Procedures Surgical History Date Name Laterality Status Provider Name and Address Organization Details Recorded Time 3 Date of Last Mammogram completed Irenejean-pierre Crook [facility] 02/06/2024 11:19:08 2 Date of Last Pap Smear completed Hafsa Mejia [facility] 12/27/2023 12:03:26 Imaging Results Imaging Date Name Status LastModified by Organization Details LastModified Time 12/17/2021 US, pelvis completed [email or web address] [facility] [address], [place], [address], 12/17/2021 13:08:26 12/17/2021 US, transvaginal completed [email or web address] [facility] [address], [place], [address], 12/17/2021 13:08:36 12/17/2021 US, pelvis completed elpidio Juarez [address], [place], [address], 12/21/2021 09:52:53 05/11/2022 MAMMO, screening, bilateral completed vschroedter [facility] [address], [place], [address], 05/17/2022 17:09:03 02/07/2024 MAMMO, screening, bilateral active FARTUN [facility] [address], [place], [address], 02/22/2024 04:02:16 Procedure Notes None recorded. Medical Equipment None Reported. Allergies No known drug allergies Medications Name Sig Start Date Stop Date Status Note LastModified by Organization Details LastModified Time Mirena 21 mcg/24 hr (up to 8 years) 52 mg intrauter ine device 2018 active Prescrib ed Elsewher e: Yes Loca tion: [facility] M odify By: nusrat atkinsonuntgriffin DateTime : 09/19/19 01:00:00 PM Not Available Not Available Not Available trazodone 50 mg tablet TAKE 1 TABLET BY MOUTH EVERY DAY AT BEDTIME NEEDED FOR INSOMNIA 02/05 completed Not Available Not Available Not Available Diflucan 150 mg tablet take 1 tablet by oral route once 08/24 completed Prescrib ed Elsewher e: No Locat ion: [place] [facility] odify By: amlucy atkinsonunter DateTime : 07/30/19 15 04:30:00 PM Not Available Not Available Not Available liothyron ine 5 mcg tablet take 1 tablet by oral route every day 11/30 completed Prescrib ed Elsewher e: Yes Loca tion: Abhi vinny [facility] odify By: amlucy [address] ncounter DateTime : 08/25/19 19 10:30:00 AM Not Available Not Available Not Available levothyro xine 125 mcg tablet TAKE 1 TABLET BY MOUTH DAILY active Not Available Not Available No t Available nystatin 100,000 unit/gram topical cream apply by topical route 2 times every day to the affected area(s) 11/30 completed Prescrib ed Elsewher e: No Locat ion: [facility] odify By: cadence thompson DateTime : 07/30/19 15 04:30:00 PM Not Available Not Available Not Available Vitamin D2 1,250 mcg (50,000 unit) capsule take 1 capsule by oral route every week 08/24 completed Prescrib ed Elsewher e: No Locat ion: [facility] odify By: amlucy atkinsonunter DateTime : 06/17/19 16 01:25:07 PM Not Available Not Available Not Available calcitrio l 0.25 mcg capsule 12/26 completed Not Available Not Available Not Available Ortho Tri-Cycle n (28) 0.18 mg(7)/0.2 15mg(7)/0 .25 mg(7)-0.0 35 mg tablet take 1 tablet by oral route every day 01/09 completed Prescrib ed Elsewher e: No Locat ion: [facility] odify By: humaira thompson DateTime : 02/03/20 11 09:30:00 AM Not Available Not Available Not Available oxycodone 5 mg tablet 12/26 completed Not Available Not Available Not Available Oyster Shell Calcium-5 00 500 mg (as carbonate 1,250 mg) tablet TAKE 2 TABLETS BY MOUTH EVERY 8 HOURS FOR 14 DAYS 12/26 completed Not Available Not Available Not Available bupropion HCl XL 150 mg 24 hr tablet, extended release TAKE 1 TABLET BY MOUTH EVERY MORNING 11/30 completed Not Available Not Available Not Available Wellbutri n XL 300 mg 24 hr tablet, extended release take 1 tablet by oral route every day 11/30 completed Prescrib ed Elsewher e: No Locat ion: [facility] odify By: chuck Resendez nter DateTime : 08/25/19 10:30:00 AM Not Available Not Available Not Available venlafaxi ne ER 37.5 mg tablet,ex tended release 24 hr take 1 tablet by oral route every day in the morning at the same time each day with food 08/24 completed Prescrib ed Elsewher e: Yes Loca tion: [facility] odify By: chuck Resendez nter DateTime : 08/25/19 10:30:00 AM Not Available Not Available Not Available [employer] At-Home COVID-19 Test kit TEST DIRECTED TODAY 12/26 completed Not Available Not Available Not Available Vitals Date Recorded Body height Body mass index (BMI) Body weight Systolic blood pressure Diastolic blood pressure Systolic blood pressure Diastolic blood pressure Provider Name and Address Organization Details Last Updated DateTime 2 165.1 cm 0.2 kg/m2 544.31 g 146 mm[Hg] 90 mm[Hg] 136 mm[Hg] 90 mm[Hg] Millicent norton [facility] 2 10:54:06 Date Recorded Body height Body mass index (BMI) Body weight Systolic blood pressure Diastolic blood pressure Provider Name and Address Organization Details Last Updated DateTime 12/21/2021 165.1 cm 33.3 kg/m2 22442.91 g 156 mm[Hg] 91 mm[Hg] Millicent Weir [facility] 2 09:39:13 Date Recorded Body height Body mass index (BMI) Body weight Systolic blood pressure Diastolic blood pressure Provider Name and Address Organization Details Last Updated DateTime 12/27/2023 165.1 cm 28.5 kg/m2 05578.3 g 159 mm[Hg] 80 mm[Hg] Hafsa Mejia [facility] 4 12:02:09 Date Recorded Body height Body mass index (BMI) Body weight Systolic blood pressure Diastolic blood pressure Provider Name and Address Organization Details Last Updated DateTime 02/06/2024 165.1 cm 29.3 kg/m2 29607.54 g 130 mm[Hg] 77 mm[Hg] Irene Crook [facility] 4 11:14:28 Social History Question Answer Notes LastModified by Organizat ion Details LastModified Time Tobacco Smoking Status Current Every Day Smoker Millicent hu, [facility] 12/21/2021 09:39:22 Do You Have An Advance Directive? No Information not available 12/21/2021 What Is Your Level Of Alcohol Consumption? Occasional Information not available 11/30/2021 Are You Blind Or Do You Have Difficulty Seeing? No Information not available 11/30/2021 What Is Your Level Of Caffeine Consumption? Heavy Information not available 12/21/2021 How Much Tobacco Do You Chew? None Information not available 12/21/2021 In The 14 Days Before Symptom Onset, Have You Had Close Contact With A Laboratory-confir med COVID-19 While That Case Was Ill? No Information not available 12/21/2021 In The 14 Days Before Symptom Onset, Have You Had Close Contact With A Person Who Is Under Investigation For COVID-19 While That Person Was Ill? No Information not available 12/21/2021 Have You Been To An Area Known To Be High Risk For COVID-19? No Information not available 12/21/2021 Are You Deaf Or Do You Have Serious Difficulty Hearing? No Information not available 11/30/2021 What Type Of Diet Are You Following? REGULAR Information not available 11/30/2021 What Is The Highest Grade Or Level Of School You Have Completed Or The Highest Degree You Have Received? 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 Yes Information not available 12/21/2021 Do You Use Protection During Sex? No Information not available 12/21/2021 Do You Use Your Seat Belt Or Car Seat Routinely? Yes Information not available 12/21/2021 Do You Have Smoke And Carbon Monoxide Detectors In Your Home? Yes Information not available 12/21/2021 At What Age Did You Start Smoking Tobacco? 18 Information not available 12/21/2021 How Much Tobacco Do You Smoke? 1 PPD Information not available 12/21/2021 Do You Feel Stressed (tense, Restless, Nervous, Or Anxious, Or Unable To Sleep At Night)? [id number] Information not available 12/21/2021 Do You Use Any Illicit Or Recreational Drugs? No Information not available 12/21/2021 Do You Use Sunscreen Routinely? No Information not available 12/21/2021 Have You Used IV Drugs? No Information not available 12/21/2021 Sex: Unknown Functional Status Question Answer Note LastModified by Organizat ion Details LastModified Time Do you have difficulty walking or climbing stairs? No Information not available 12/21/2021 Are you able to walk? YESWOREST Information not available 11/30/2021 Are you able to care for yourself? Yes Information not available 12/21/2021 Do you have difficulty dressing or bathing? No Information not available 12/21/2021 What is your exercise level? Occasional Information not available 12/21/2021 Mental Status None recorded. Family History Relationship Description Onset Age of this Age Resolved Age Notes LastModified by Organization Details LastModified Time Brother Disorder of thyroid gland vschroedter Not available 05/2021 10:31:01 Notes:Father: Diabetes rupalii tus, Hypertension Mother: Cancer, breast, Diabetes mellitus Paternal grandfather: DVT LE Medical History Condition Response Allergies (Food, seasonal, environmental ) N Other N Breast Cancer N Drug/Latex Allergies/Reactions N Blood Transfusion N Dermatologic Disorders N Lung Disease N Defects or Inherited Disease N Breast Problem N Gestational Diabetes N Hematologic disorders N Anesthesia Complications N History of STI N Deep Vein Thrombosis N Polycystic ovary syndrome N Anxiety Disorder N Autoimmune disease N Arthritis N Infertility N Polyps N Acid Reflux (GERD) N History of abnormal pap N Cancer N Stroke N Varicosities N Neurologic/Epilepsy N Endometriosis N High Cholesterol N Headaches N Fibromyalgia N Kidney Disease N Heart Problems N Kidney or Bladder Problems N Thyroid Problems N GI Problems N Eating Disorder N Anemia N Art (IVF or FET) N Psychiatric Illness N Ovarian Cancer N Diabetes N Pulmonary (TB, Asthma) N Hepatitis/Liver Disease N No Past Medical History N Eczema N Urinary Tract Infection N Abuse/Domestic Violence N Asthma N Trauma/Violence N Depression/ depression N Heart Disease N Pre-Eclampsia N Hypertension N Osteoporosis N Thrombophilias N Gynecological History Statement/Question Response Date of Last Mammogram 05/11/2022 Flow Light Date of LMP 01/21/2024 N Was last menstrual period normal N STIs/STDs N HPV Vaccine N Duration of Flow (days) 3 Current Control Method IUD Age at First Child 27 Frequency of Cycle (Q days) 30 Sexually Active? Y IUD Menses Monthly Y Age of first menstrual cycle 15 Date of Last Pap Smear 11/30/2021 Sexual Problems? Y Desired Control Method IUD LMP Approximate N Obstetrics History GPAL:G 2 P 0 0 0 2 Type Value Living 2 Total 2 Past Encounters Encounter ID Performer Location Encounter Start Date Encounter Closed Date Diagnosis/Indication Diagnosis SNOMED-CT Code Diagnosis ICD10 Code Diagnosis Note [id number] DELGADO Alvarado [facility] [address] [address] 11/30/2021 10:06:06 11/30/2021 11:23:45 Contraception care management 459027421 Z30.9 Screening for malignant neoplasm of breast 992078814 Z12.39 Gynecologi c examination 92487945 Z01.419 Suggested Calcium with Vitamin D 1200-1500m g daily. Patient advised to get an annual flu shot in the fall and she could obtain at [facility] or [facility] take care clinic. Also to obtain TDap vaccinatio n if you have not had one in the last 10 years. Recommend yearly mammograms . Encouraged monthly self breast exams. Encourage safe sexual practices, to use condoms and limit partners if not already in a monogamous relationsh ip. Engage in daily exercise of low impact aerobic exercise 45-60 minutes 4-5 times weekly. Avoid tobacco and illicit drugs as well as using moderation with alcohol intake less than 1-2 8 oz beverages daily. This lifestyle behavior pattern will lead to less health conditions and longer life span. If BMI greater than 25 weight watchers or dietary consult advised. All questions have been answered. Patient appears to understand informatio n, but if you have any questions please call or respond to this email. WWEMirena IUD inserted 09/18/2018, happy with this method. Has monthly light spotting(+ ) IUD strings on examHas been having pain with intercours e for years, unsure if related to friction or more pelvic pain. We discussed vulvar moisturizi ng routine with criso twice daily + use as lubricatio n with intercours e. Pelvic u/s ordered as well.No hx of abnormal paps per patientPap done todaySTI testing added to papMammogr am order givenOn exam, thyroid appears enlarged. She states she has been diagnosed with goiter in the past and last u/s was around 8 years ago. Has lab orders from PCP for blood work. She will call her PCP to be seen in office, as she may need another thyroid u/s. Encouraged her to obtain lab work as well.BP today 136/90, she will let her PCP know about her elevated BP (To go to the ED with any chest pains, blurry vision, etc)RTC for pelvic u/s and f/u appointmen t Time spent in visit is a total of 30 mins with at least 50% of visit consisting of counseling and review of plan of care. Dyspareunia [id number] N94 .10 [id number] Tia [facility] [address] [address] 12/17/2021 10:54:09 12/17/2021 11:55:47 Dyspareunia [id number] N94.10 [id number] DELGADO Alvarado [facility] [address] [address] 12/21/2021 09:33:35 12/21/2021 10:03:44 Dyspareunia 78368726 N94.10 We discussed the pelvic u/s result in-depthNo rmal appearing IUD, normal appearing uterus1.8c m left corpus luteum cyst1.9cm right non-specif ic cystWe discussed need to repeat u/s in 8 weeks for further evaluation of non-specif ic cyst. Patient agrees, will schedule.S boubacar pain has resolved, she will continue to monitor if pain returnsED precaution s discussed, risk of ovarian torsion discussed Time spent in visit is a total of 20 mins with at least 50% of visit consisting of counseling and review of plan of care. BP today 156/91 - no symptoms - patient states she has notified PCP of BP elevation and she has an appointmen t with them for further management . ED precaution s discussed - to go to the ED with any SOB, chest pain, etc. [id number] Bashir Schultz MD [facility] [address],[place] [address] 12/27/2023 11:52:22 12/27/2023 22:36:36 [id number] Bashir Schultz MD [facility] [address],[place] [address] 02/06/2024 10:52:57 02/06/2024 11:55:35 Gynecologic examination [id number] Z01.419 Annual gynecologi jermaine exam performed. Patient will come back in a year unless there are new symptoms. Suggest Calcium with Vitamin D if not eating in diet. Patient advised to get annual flu shot. Recommend yearly physicals and preform monthly breast exams. Genetic testing is available for patients with family history of cancer. Engage in safe sexual practices, use condoms. Encouraged to have daily exercise. Avoid tobacco and illicit drugs, moderation of alcohol. If BMI greater than 25 dietary consult advised. If you have any questions please call or email. mammogram- ordered colon cancer screening -ordered Pap smear- today laboratory evaluation -[facility] Concerns Section Related Observation LastModified by Organization Detai ls LastModified Time None Recorded Concern Status LastModified by Organization Details LastModified Time None Recorded Advance Directives Directive N: Payers Encounter Date Sequence Insurance Name Policy Number Policy Cruz Covered Member ID Cruz Member ID Guarantor Name 11/30/2021 1 [facility] [id number] Kim A Junior [id number] Kim A Junior 12/17/2021 1 [facility] [id number] Kim A Junior [id number] Kim A Junior 12/21/2021 1 [facility] [id number] Kim A Junior [id number] Kim A Junior 12/27/2023 1 [facility] [id number] Kim A Junior [id number] Kim A Junior 02/06/2024 1 [facility] [id number] Kim A Junior [id number] Kim A Junior Notes Date Note Type Note Provider Name and Address Organization Details Recorded Time 11/30/2021 text/html Annual GYNReport ed bypatient.Menstrual cycle:Normal menses Urinary symptoms:No hematuria; No incontinence Vulva:No genital lesion Vagina:Normal vaginal discharge Breast:No breast pain; No breast lump; No nipple discharge Current Contraception:Intraut erine device (iud) Sexual complaints:No sexual complaints; No pain during intercourse; Normal libido Menopausal Symptoms:No menopausal symptoms; Normal vaginal lubrication Psychological symptoms:No depression; No anxiety; No PMDD Preventive measures:Encourage self breast examination; Encourage regular exercise; Encourage no tobacco use; Encourage regular mammograms starting age 40 Pain with intercourse for years, pain is mostly once intercourse is over and then resolves on its own after a few hours.Same partner x 8 years DELGADO Alvarado [address], [place], [address], [facility] 11/30/2021 11:04:10 12/21/2021 text/html Patient presents for u/s f/u due to pain with intercourseDoing well since MARANDA, has not felt the pain during intercourse sinceNo vaginal symptomsNo irregular bleeding [address], [place], [address], [facility] 12/21/2021 09:58:23 02/06/2024 text/html Annual GYNReport ed bypatient.History:no gynecologic complaints Menstrual cycle:Normal menses Urinary symptoms:No hematuria; No incontinence Vulva:No genital lesion Vagina:Normal vaginal discharge Breast:No breast pain; No breast lump Current Contraception:Satisfi ed with current contraception; Intrauterine device (iud) Sexual complaints:No sexual complaints; No pain during intercourse Menopausal Symptoms:No menopausal symptoms; Normal vaginal lubrication Psychological symptoms:Depression;A nxiety; mild - declines [place] Preventive measures:Encourage self breast examination; Encourage regular exercise Bashir Schultz MD [address], [place], [address], [facility] 02/06/2024 11:51:57 OBGyn Episode Ob Episode Information Episode Created Date Number of Fetuses Patient Bloodtype Patient rh Status Prepregnancy Weight lbs Domestic Partner Domestic Partner Phone Father Name Baby Stroller Rental Clerk Status 12/01/19 22 1 CLOSED Fetus Data First Name Last Name Admitted to NICU Weight (g) Sex Living Outcome Pediatric Complications Fetus ID Race Codes Race Delivery Type 3005.04 7 M Full Term [id number] Vaginal Delivery Rebel Calculation Initial Rebel Date Initial Exam Date Initial Exam Provider Initial Ultrasound Date Last Menstrual Period Date Ultra Sound Weeks Gestation 0 Eighteen To Twenty Week Rebel Update Ultra Sound Date Fundal Height At Umbil Quickening Date Ultra Sound Latest Weeks Gestation Final Rebel Confirmed By Final Rebel Confirmed Date Final Rebel Date Ultra Sound Latest Days Gestation 0 0 Menstrual History Last Menstrual Date Menses Monthly On Bcp Conception Prior Menses Frequency Hcg Plus Date Menarche Onset Age Delivery Information Delivery Date Delivery Type Labor Anesthesia Weeks Gestation Incision Type Labor Labor Length Hrs Delivered By Post Complications Tubal Sterilization Discharge Date Comments 3 Discharge Information Feeding Method Contraceptive Method Maternal HG B and HCT Levels Ob Episode Information Episode Created Date Number of Fetuses Patient Bloodtype Patient rh Status Prepregnancy Weight lbs Domestic Partner Domestic Partner Phone Father Name Baby Stroller Rental Clerk Status 12/01/19 22 1 CLOSED Fetus Data First Name Last Name Admitted to NICU Weight (g) Sex Living Outcome Pediatric Complications Fetus ID Race Codes Race Delivery Type 2948.34 8 M Full Term [id number] Vaginal Delivery Rebel Calculation Initial Rebel Date Initial Exam Date Initial Exam Provider Initial Ultrasound Date Last Menstrual Period Date Ultra Sound Weeks Gestation 0 Eighteen To Twenty Week Rebel Update Ultra Sound Date Fundal Height At Umbil Quickening Date Ultra Sound Latest Weeks Gestation Final Rebel Confirmed By Final Rebel Confirmed Date Final Rebel Date Ultra Sound Latest Days Gestation 0 0 Menstrual History Last Menstrual Date Menses Monthly On Bcp Conception Prior Menses Frequency Hcg Plus Date Menarche Onset Age Delivery Information Delivery Date Delivery Type Labor Anesthesia Weeks Gestation Incision Type Labor Labor Length Hrs Delivered By Post Complications Tubal Sterilization Discharge Date Comments 7 Discharge Information Feeding Method Contraceptive Method Maternal HG B and HCT Levels
--- OUTSIDE RECORDS SUMMARY | 2024-07-16 13:19 | XMS_ITS | Referral Summary ---
Author Organization [facility] Address [address] [place] [address] Care Team Providers Care Director Funds Development Name Role Phone Papa Chowdhury MD Primary Care Provider [phone] Allergies No known active allergies Medications levonorgestreL (Mirena) IUDIndications:Pr egnancy Contraception 1 each by intrauterine route continuous 09/19/19 19 Active multivitamin capsuleIndication s:Vitamin Deficiency Prevention Take 1 capsule by mouth every morning Active calcitRIOL (ROCALTROL) 0.25 mcg capsule Take 1 capsule (0.25 mcg total) by mouth daily for 14 days 14 capsule 06/16/19 23 Active calcium carbonate (OS-ANYA) 1,250 mg (500 mg elemental) tablet Take 2 tablets (2,500 mg total) by mouth every 8 (eight) hours for 14 days 84 tablet 1 06/15/19 23 Active levothyroxine (SYNTHROID) 125 mcg tablet Take 1 tablet (125 mcg total) by mouth daily 30 tablet 3 10/16/19 23 Active Active Problems Problem Noted Date Diagnosed Date Head injury, initial encounter 08/31/2023 Scalp laceration, initial encounter 08/31/2023 Immunization, tetanus-diphtheria 08/31/2023 Goiter 05/14/2022 Overview (05/14/2022): Added automatically from request for surgery [id number] Multinodular goiter 06/20/2015 Overview (06/30/2022): DIAGNOSIS: Bilateral thyroid nodules PROCEDURE PERFORMED: (Jg 06/14/22) Total thyroidectomy Mixed anxiety depressive disorder 01/08/2013 Overview (08/05/2016): Anxiety and depression Immunizations Immunization Administration Dates Next Due Tdap 08/31/2023 Social History Tobacco Use Types Packs/Day Years Used Date Smoking Tobacco: Former Cigarettes 0.5 28.7 1 994 - 01/2022 Smokeless Tobacco: Never Tobacco Cessation:Counseling Given: Not Answered Alcohol Use Standard Drinks/Week Comments Yes 0 (1 standard drink = 0.6 oz pur e alcohol) social AUDIT-C Answer Date Recorded Q1: How often do you have a drink containing alcohol? 4 or more times a week 06/14/2022 Q2: How many drinks containi ng alcohol do you have on a typical day when you are drinking? 3 or 4 Q3: How often do you have si x or more drinks on one occasion? Less than monthly 06/14/2022 Personal Safety Answer Date Recorded Have you ever been in or are you currently in a harmful physical or emotional relationship or is someone making you feel afraid or unsafe? 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 Gender Identity Not on file Sexual Orientation Not on file Last Filed Vital Signs Vital Sign Reading Time Taken Comments Blood Pressure 122/76 08/31/2023 5:55 PM CDT Pulse 75 08/31/2023 5:55 PM CDT Temperature 36.1 C (97 F) 08/31/2023 2:34 PM CDT Respiratory Rate 16 08/31/2023 5:55 PM CDT Oxygen Saturation 99% 08/31/2023 5:55 PM CDT Inhaled Oxygen Concentration - - Weight 73 kg (161 lb) 08/31/2023 2:34 PM CDT Height 165.1 cm (5' 5 ) 08/31/2023 2:34 PM CDT Body Mass Index 26.79 08/31/2023 2:34 PM CDT Plan of Treatment Not on file Insurance [facility] CHOICE [facility]US [facility] H[facility]/PPO Address: [address] [address] [place] [address] [facility] CHOICE PLUS [facility] H[facility]/PPO Address: [facility] [address] [place] [address] WORKERS COMPENSATION GENERIC Advance Directives For more information, please contact: [phone] * Full Code (Latest Code Status on File) Date Activated Date Inactivated Comments 06/14/2022 3:10 PM 06/15/2022 3:28 PM Care Teams Director Funds Development Relationship Specialty Start Date End Date Papa Chowdhury MD PCP - General Family Practice 06/14/22
--- OUTSIDE RECORDS SUMMARY | 2024-07-16 13:19 | XMS_ITS | Clinical Summary ---
Author Organization [facility] Address [address] [place] [address] Care Team Providers Care Manager Care Management Name Role Phone Papa Chowdhury MD Primary Care Provider [phone] Allergies No known active allergies Medications levonorgestreL [...] (05/14/2022): Added automatically from request for surgery [id number] Multinodular goiter 06/20/2015 Overview (06/30/2022): DIAGNOSIS: Bilateral thyroid nodules PROCEDURE PERFORMED: (Jg 06/14/22) Total thyroidectomy Mixed anxiety depressive disorder 01/08/2013 Overview (08/05/2016): Anxiety and depression Immunizations Immunization Administration Dates Next Due Tdap 08/31/2023 Surgical History Surgery Date Site/Laterality Comments IR FINE NEEDLE ASPIRATION W IMAGE GUIDANCE 06/24/2015 N/A IR FINE NEEDLE ASPIRATION W IMAGE GUIDANCE 06/24/2015 N/A SLEEVE GASTROPLASTY 03/05/2022 Family History Medical History Relation Name Comments Thyroid disease Brother Thyroid disease Mother Relation Name Status Comments Brother Mother Social History Tobacco Use Types Packs/Day Years Used Date Smoking Tobacco: Former Cigarettes 0.5 28.7 1 01/2022 Smokeless Tobacco: Never Tobacco Cessation:Counseling Given: [...] on file 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 Gender Identity Not on file Sexual Orientation Not on file Obstetrics History Last Filed Vital Signs Vital Sign Reading [...] 08/31/2023 2:34 PM CDT Plan of Treatment Health Maintenance Due Date Last Done Comments Cervical Cancer Screening 1977 Colon Cancer Screening-Colonoscopy 1977 Depression Screening 1977 Hepatitis C Screening 1977 Hepatitis B Screening 07/17/1995 Regular Well Visit/Exam 18-64 07/17/1995 Breast Cancer Screening-Mammogram 05/12/2023 023 Covid-19 Vaccine (2 - 2023-2 5 season) 2024 12/18/2020 Influenza Vaccine (#1) 2024 DTaP/Tdap/Td Vaccine (2 - Td or Tdap) 08/30/2033 08/31/2023 HPV Vaccines Aged Out No longer eligi ble based on patient's age to complete this topic Pneumococcal vaccine <65 Aged Out No longer eligible based on patient's age to complete this topic Insurance [place] [employer] [place] [facility] CHOICE PLUS [facility] HMO/PPO Address: [address] [place] [address] [facility] CHOICE PLUS [facility] H[facility]/PPO Address: [address] [place] [address] WORKERS COMPENSATION GENERIC Advance Directives For more information, please contact: [phone] * Full Code (Latest Code Status on File) Date Activated Date Inactivated Comments 06/14/2022 3:10 PM 06/15/2022 3:28 PM Care Teams Manager Care Management Relationship Specialty Start Date End Date Papa Chowdhury MD PCP - General Family Practice 06/14/22
== END 2024-07-16 11:43 | disposition home or self-care (01) ==
PROVIDERS: Emergency Provider Nurse Practitioner; PCP Family Medicine
DX: J06.9 Acute upper respiratory infection, unspecified (principal); Z87.891 Personal history of nicotine dependence; E03.9 Hypothyroidism, unspecified
CPT/HCPCS: 99211; G0463

== ENCOUNTER 2024-08-27 08:47 | Outpatient (CLI) | payer OTHER, SELFPAY ==
--- OUTSIDE RECORDS SUMMARY | 2024-08-27 09:07 | XMS_ITS | Data Portability ---
Author Organization [facility] Address [address] [place] [address] [address] [place] [address] Care Team Providers Care Indian Nanny Name Role Phone LOS LARKIN Primary Care Provider [phone] Assessment Encounter Date Assessment Date Assessment LastModified [...] a year unless there are new symptoms. [email or web address] Not available 02/06/2024 11:10:50 Plan of Treatment Reminders Order Date Submit Date Provider Last Modified By Organization Details Last Modified Time Details Appointments None recorded . Lab pregnanc y test, urine 2021 022 geraldine [facility], [address], [place], [address], 10:41:00 Referral None recorded . Procedures None recorded . Surgeries None recorded . Imaging US, pelvis, complete 2021 022 [email or web address] [facility], [address], [place], [address], 3 16:53:42 US, pelvis 2021 022 [email or web address] [facility], [address], [place], [address], 2 20:25:08 US, transvag inal 2021 022 [email or web address] [facility], [place], [address], 2 20:25:08 US, pelvis, complete 2021 022 [email or web address] [facility], [place], [address], 2 12:20:37 MAMMO, screenin g, bilatera l 2021 022 [email or web address] [facility], [address], [place], [address], 3 07:24:34 Medication Orders None recorded . [...] miguel ángeli austen burrows nted. Not Available [facility] Infectious Disease [address] [place] [address], [address], 12/03/2021 22:17:42 12/01/19 22 11/30/2021 CT/GC (YADY) , THINP REP VIAL chlamydia trachomatis, PCR Negati ve negati ve Not Available [facility] Infect[facility] Disease [address] [place] [address], [address], 12/03/2021 22:17:43 12/01/19 22 11/30/2021 CT/GC (YADY) , THINP REP VIAL neisseria gonorrhoeae, PCR Negati ve negati ve Not Available [facility] Infectious Disease [address] [place] [address], [address], 12/03/2021 22:17:43 12/01/19 22 11/30/2021 TRICH OMONA S VAGIN MAURO (RRNA ) trichomonas vaginalis ribosomal RNA (rrna) Negati ve negati ve Not Available [facility] Infectious Disease [address] [place] [address], [address], 12/03/2021 22:17:43 12/01/19 22 11/30/2021 pregn rubén test, urine HCG negati ve Not Available [facility] [address], [place], [address], 11/30/2021 10:40:46 12/18/19 22 12/17/2021 US, pelvi s No observ ation record ed. [email or web address] [facility] [address], [place], [address], 12/17/2021 13:08:26 12/18/19 22 12/17/2021 US, trans vagin al No observ ation record ed. [email or web address] [facility] [address], [place], [address], 12/17/2021 13:08:36 12/18/19 22 12/17/2021 US, pelvi s No observ ation record ed. elpidio [address], [place], [address], 12/21/2021 09:52:53 05/12/19 23 05/11/2022 MAMMO , scree alireza, bilat eral No observ ation record ed. [email or web address] [facility] [address], [place], [address], 05/17/2022 17:09:03 02/07/20 24 02/07/2024 MAMMO , scree alireza, bilat eral No observ ation record ed. [facility] [address], [place], [address], 02/22/2024 04:02:16 Result Notes None recorded. Problems Name Problem SNOMED Code Status Onset Date Resolution Date Notes Provider Name and Address Organization Details Recorded Time Breast lump 23690718 Active 2013 Lump or mass in breast;P ractice ID: 0001 Not Available [facility] 0 21:23:38 Screenin g for malignan t neoplasm of rectum Active 2013 Screenin g for malignan t neoplasm s of the rectum;P ractice ID: 0001 Not Available [facility] 0 21:23:38 Eruption 716568658 Active 2014 Rash and other nonspeci fic skin eruption ;Practic e ID: 0001 Not Available [facility] 0 21:23:38 Localize d swelling , mass and lump, neck Active 2015 Localize d swelling , mass and lump, neck;Pra ctice ID: 0001 Not Available [facility] 0 21:23:[address] Concept Active 2015 Encntr for occupational therapy manager exam (general ) (routine ) w/o abn findings ;Practic e ID: 0001 Not Available [facility] 0 21:23:38 Removal of intraute rine device Active 2017 Encounte r for removal of intraute rine contrace ptive device;P ractice ID: 0001 Not Available [facility] 0 21:23:38 Emotiona l state finding Active 2018 Other specifie d anxiety disorder s;Practi ce ID: 0001 Not Available [facility] 0 21:23:38 Insertio n of intraute rine contrace ptive device Active 2018 Encounte r for insertio n of intraute rine contrace ptive device;P ractice ID: 0001 Not Available [facility] 0 21:23:39 Pregnanc y test negative 601672123 Active 2018 Encounte r for pregnanc y test, result negative ;Practic e ID: 0001 Not Available [facility] 0 21:23:39 Contrace ptive sheath status 440861042 Active 2018 Encounte r for routine checking of intraute rine contrace p dev;Prac srinivasa ID: 0001 Not Available [facility] 0 21:23:[address] Concept Active 2015 Well woman check w/ abnormal finding; Recorded Elsewher e: No [facility] EHR Solder Making Supervisor tyrell: N Practi ce ID: 0001 Jarret lable Time: 09:30:00 AM Not Available [facility] 0 21:23:39 Insertio n of intraute rine contrace ptive device Completed 201101/11/2012 INSERTIO N OF IUD;Danilo rded Elsewher e: No Locat ion: [place] [facility] S ource: EHR Solder Making Supervisor tyrell: N Practi ce ID: 0001 Jarret lable Time: 08:45:00 AM Not Available [facility] 0 21:23:39 Removal of intraute rine device Completed 201101/11/2012 REMOVAL OF IUD;Danilo rded Elsewher e: No Locat ion: [place] [facility] S ource: EHR Solder Making Supervisor tyrell: N Practi ce ID: 0001 Jarret lable Time: 09:30:00 AM Not Available [facility] 0 21:23:[address] Concept Active 2018 Encntr for general adult medical exam w/o abnormal findings ;Recorde d Elsewher e: No Locat ion: [facility] S ource: EHR Solder Making Supervisor tyrell: N Wandati ce ID: 0001 Jarret lable Time: 10:30:00 AM Not Available [facility] 0 21:23:39 Speciali zed medical examinat ion Completed 201001/11/2012 Gynecolo gical Examinat ion;Danilo rded Elsewher e: No [facility] S ource: EHR Solder Making Supervisor tyrell: N Wandati ce ID: 0001 Jarret lable Time: 09:30:00 AM Not Available [facility] 0 21:23:40 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;Re corded Elsewher e: No [facility] S ource: EHR Solder Making Supervisor tyrell: N Wandati ce ID: 0001 Jarret lable Time: 10:30:00 AM Not Available [facility] 0 21:23:40 Overweig ht 771936789 Active 2010 Overweig ht;Recor ded Elsewher e: No Locat ion: [facility] S ource: EHR Solder Making Supervisor tyrell: N Wandati ce ID: 0001 Jarret lable Time: 09:30:00 AM Not Available [facility] 0 21:23:40 Screenin g for malignan t neoplasm of cervix Active 2010 Screenin g for malignan t neoplasm s of the cervix;R ecorded Elsewher e: No Locat ion: [facility] S ource: EHR Solder Making Supervisor tyrell: N Wandati ce ID: 0001 Jarret lable Time: 09:30:00 AM Not Available [facility] 0 21:23:40 Problem Notes None recorded. Procedures Surgical History Date Name Laterality Status Provider Name and Address Organization Details Recorded Time 3 Date of Last Mammogram completed Irenejean-pierre Crook [facility] 02/06/2024 11:19:08 2 Date of Last Pap Smear completed Hafsa Mejia [facility] 12/27/2023 12:03:26 Imaging Results Imaging Date Name Status LastModified by Organization Details LastModified Time 12/17/2021 US, pelvis completed [email or web address] [facility] [address], [place], [address], 12/17/2021 13:08:26 12/17/2021 US, transvaginal completed [email or web address] [facility] [address], [place], [address], 12/17/2021 13:08:36 12/17/2021 US, pelvis completed elpidio Ju[address], [place], [address], 12/21/2021 09:52:53 05/11/2022 MAMMO, screening, bilateral completed [email or web address] [facility] [address], [place], [address], 05/17/2022 17:09:03 02/07/2024 MAMMO, screening, bilateral active FARTUN [facility] [address], [place], [address], 02/22/2024 04:02:16 Procedure Notes None recorded. Medical Equipment None Reported. Allergies No known drug allergies Medications Name Sig Start Date Stop Date Status Note LastModified by Organization Details LastModified Time Mirena 21 mcg/24 hr (up to 8 years) 52 mg intrauter ine device 2018 active Prescrib ed Elsewher e: Yes Loca tion: [facility] M odify By: nusrat atkinsonuntgriffin DateTime : 09/19/19 01:00:00 PM Not Available Not Available Not Available trazodone 50 mg tablet TAKE 1 TABLET BY MOUTH EVERY DAY AT BEDTIME NEEDED FOR INSOMNIA 02/05 completed Not Available Not Available Not Available Diflucan 150 mg tablet take 1 tablet by oral route once 08/24 completed Prescrib ed Elsewher e: No Locat ion: [place] [facility] odify By: amlucy atkinsonunter DateTime : 07/30/19 15 04:30:00 PM Not Available Not Available Not Available liothyron ine 5 mcg tablet take 1 tablet by oral route every day 11/30 completed Prescrib ed Elsewher e: Yes Loca tion: Abhi vinny [facility] odify By: amlucy [address] ncounter DateTime : 08/25/19 19 10:30:00 AM Not Available Not Available Not Available levothyro xine 125 mcg tablet TAKE 1 TABLET BY MOUTH DAILY active Not Available Not Available No t Available nystatin 100,000 unit/gram topical cream apply by topical route 2 times every day to the affected area(s) 11/30 completed Prescrib ed Elsewher e: No Locat ion: [facility] odify By: cadence thompson DateTime : 07/30/19 15 04:30:00 PM Not Available Not Available Not Available Vitamin D2 1,250 mcg (50,000 unit) capsule take 1 capsule by oral route every week 08/24 completed Prescrib ed Elsewher e: No Locat ion: [facility] odify By: amlucy atkinsonunter DateTime : 06/17/19 16 01:25:07 PM Not Available Not Available Not Available calcitrio l 0.25 mcg capsule 12/26 completed Not Available Not Available Not Available Ortho Tri-Cycle n (28) 0.18 mg(7)/0.2 15mg(7)/0 .25 mg(7)-0.0 35 mg tablet take 1 tablet by oral route every day 01/09 completed Prescrib ed Elsewher e: No Locat ion: [facility] odify By: humaira thompson DateTime : 02/03/20 [...] Prescrib ed Elsewher e: No Locat ion: [facility] odify By: chuck Resendez nter DateTime : 08/25/19 10:30:00 AM Not Available Not Available Not Available venlafaxi ne ER 37.5 mg tablet,ex tended release 24 hr take 1 tablet by oral route every day in the morning at the same time each day with food 08/24 completed Prescrib ed Elsewher e: Yes Loca tion: [facility] odify By: chuck Resendez nter DateTime : [...] mm[Hg] 136 mm[Hg] 90 mm[Hg] Millicent norton [facility] 2 10:54:06 Date Recorded Body height Body mass index (BMI) Body weight Systolic blood pressure Diastolic blood pressure Provider Name and Address Organization Details Last Updated DateTime 12/21/2021 165.1 cm 33.3 kg/m2 84145.91 g 156 mm[Hg] 91 mm[Hg] Millicent Weir [facility] 2 09:39:13 Date Recorded Body height Body mass index (BMI) Body weight Systolic blood pressure Diastolic blood pressure Provider Name and Address Organization Details Last Updated DateTime 12/27/2023 165.1 cm 28.5 kg/m2 45368.3 g 159 mm[Hg] 80 mm[Hg] Hafsa Mejia [facility] 4 12:02:09 Date Recorded Body height Body mass index (BMI) Body weight Systolic blood pressure Diastolic blood pressure Provider Name and Address Organization Details Last Updated DateTime 02/06/2024 165.1 cm 29.3 kg/m2 17731.54 g 130 mm[Hg] 77 mm[Hg] Irene Crook [facility] 4 11:14:28 Social History Question Answer Notes LastModified by Organizat ion Details LastModified Time Tobacco Smoking Status Current Every Day Smoker Millicent hu, [facility] 12/21/2021 09:39:22 Do You Have [...] Or The Highest Degree You Have Received? [id number] Information not available 12/21/2021 What Is Your [...] Anxious, Or Unable To Sleep At Night)? [id number] Information not available 12/21/2021 Do You Use [...] (Food, seasonal, environmental ) N Other N Blood Transfusion N Drug/Latex Allergies/Reactions N Breast Cancer N Dermatologic Disorders N Lung Disease N [...] SNOMED-CT Code Diagnosis ICD10 Code Diagnosis Note [id number] DELGADO Alvarado [facility] [address] [address] 11/30/2021 10:06:06 11/30/2021 11:23:45 Contraception care management 445657850 Z30.9 Screening for malignant neoplasm of breast 776742649 Z12.39 Gynecologi c examination 60801205 Z01.419 Suggested Calcium with Vitamin D 1200-1500m g daily. Patient advised to get an annual flu shot in the fall and she could obtain at [facility] or [facility] take care clinic. Also to obtain TDap [...] and review of plan of care. Dyspareunia 30613779 N94 .10 [id number] [facility] [address] [address] 12/17/2021 10:54:09 12/17/2021 11:55:47 Dyspareunia 95900196 N94.10 [id number] DELGADO Alvarado [facility] [address],[place] [address] 12/21/2021 09:33:35 12/21/2021 10:03:44 Dyspareunia 56544008 N94.10 We discussed the pelvic u/s result [...] chest pain, etc. [id number] Bashir Schultz MD [facility] [address],[place] [address] 12/27/2023 11:52:22 12/27/2023 22:36:36 [id number] Bashir Schultz MD [facility] [address],[place] [address] 02/06/2024 10:52:57 02/06/2024 11:55:35 Gynecologic examination 94268871 Z01.419 Annual gynecologi jermaine exam performed. Patient [...] Cruz Member ID Guarantor Name 11/30/2021 1 [facility] [id number] Kim A Junior [id number] Kim A Junior 12/17/2021 1 [facility] [id number] Kim A Junior [id number] Kim A Junior 12/21/2021 1 [facility] [id number] Kim A Junior [id number] Kim A Junior 12/27/2023 1 [facility] [id number] Kim A Junior [id number] Kim A Junior 02/06/2024 1 [facility] [id number] Kim A Junior [id number] Kim A Junior Notes Date Note Type [...] 10 years DELGADO Alvarado [address], [place], [address], [facility] 11/30/2021 11:04:10 12/21/2021 text/html Patient presents for u/s f/u due to pain with intercourseDoing well since MARANDA, has not felt the pain during intercourse sinceNo vaginal symptomsNo irregular bleeding [address], [place], [address], [facility] 12/21/2021 09:58:23 02/06/2024 text/html [...] exercise Bashir Schultz MD [address], [place], [address], [facility] 02/06/2024 11:51:57 OBGyn Episode Ob Episode Information Episode Created Date Number of Fetuses Patient Bloodtype Patient rh Status Prepregnancy Weight lbs Domestic Partner Domestic Partner Phone Father Name Head Banquet Waiter/Waitress Status 12/01/19 22 1 CLOSED Fetus Data First Name Last Name Admitted to NICU Weight (g) Sex Living Outcome Pediatric Complications Fetus ID Race Codes Race Delivery Type 3005.04 7 M Full Term [id number] Vaginal Delivery Rebel Calculation Initial Rebel Date [...] Domestic Partner Domestic Partner Phone Father Name Head Banquet Waiter/Waitress Status 12/01/19 22 1 CLOSED Fetus Data First Name Last Name Admitted to NICU Weight (g) Sex Living Outcome Pediatric Complications Fetus ID Race Codes Race Delivery Type 2948.34 8 M Full Term [id number] Vaginal Delivery Rebel Calculation Initial Rebel Date [...]
--- OUTSIDE RECORDS SUMMARY | 2024-08-27 09:07 | XMS_ITS | Clinical Summary ---
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 Gender Identity Not on file Sexual Orientation [...] (2 - Td or Tdap) 08/30/2033 08/31/2023 Pneumococcal vaccine <65 Aged Out No longer eligible based on patient's age to complete this topic Insurance [facility] CHOICE PLUS [facility] HMO/PPO Address: [address] [place] [address] [facility] CHOICE PLUS [facility] H[facility]/PPO Address: [address] [place], [place] [id number] WORKERS COMPENSATION GENERIC Member Subscriber Plan / Payer (Ef fective 2023-Present) Name:Kim Pacheco Relation to Subscriber:Employee Name:HERMES DIAZ Address: [address] [place] [address] Payer ID:[id number] Group ID:Not on file Type:WORKERS COMPENSATION Address: [address] [place] [id number] Advance Directives For more information, please contact: [phone] * Full Code (Latest Code Status on File) Date Activated Date Inactivated Comments 06/14/2022 3:10 PM 06/15/2022 3:28 PM Care Teams Manager Simulation Relationship Specialty Start Date End Date Papa Chowdhury MD PCP - General Family Practice 06/14/22
--- OUTSIDE RECORDS SUMMARY | 2024-08-27 09:07 | XMS_ITS | Referral Summary ---
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
[2024-08-27 20:06] LABS: Basophils Absolute Auto 0.1 K/mm3 (0.0-0.1); Basophils Percent Auto 2.4 % (0.2-1.2); Eosinophils Absolute Auto 0.1 K/mm3 (0-0.3); Eosinophils Percent Auto 2.8 % (0-4.4); Hematocrit 40.1 % (37.0-47.0); Hemoglobin 12.9 g/dL (12.0-15.0); Immature Granulocyte Absolute 0.01 K/mm3 (0.00-0.031); Immature Granulocyte Percent A 0.2 % (0-0.5); Lymphocytes Absolute Auto 0.98 K/mm3 (0.9-3.2); Lymphocytes Percent Auto 21.4 % (18.3-44.2); Mean Corpuscular HGB Conc 32.2 g/dl (32-36); Mean Corpuscular Hemoglobin 32.3 pg (26-34); Mean Corpuscular Volume 100.5 fl (80-100); Mean Platelet Volume 10.1 fl (7.4-10.4); Monocytes Absolute Auto 0.3 K/mm3 (0.1-0.6); Monocytes Percent Auto 6.8 % (2.6-8.5); Neutrophils Percent Auto 66.4 % (45.5-73.1); Platelet Count Result 238 k/mm3 (150-375); Red Blood Count 3.99 M/mm3 (4.2-5.4); Red Cell Distribution Width 12.9 % (11.5-14.5); White Blood Count 4.6 K/mm3 (4.5-10.0)
[2024-08-27 22:48] LABS: Alanine Aminotransferase 20 U/L (6-35); Albumin Level 4.5 g/dL (3.5-5.1); Alkaline Phosphatase 50 U/L (38-126); Anion Gap 9 mmol/L (4-12); Aspartate Amino Transferase 46 U/L (14-36); Bilirubin,Total 0.5 mg/dL (0.2-1.3); Blood Urea Nitrogen 16 mg/dL (7-17); Calcium 8.1 mg/dL (8.4-10.2); Carbon Dioxide 26 mmol/L (22-30); Chloride 104 mmol/L (98-107); Cholesterol 235 mg/dL (0-200); Estimated Glomerular Filt Rate > 60; Glucose 66 mg/dL (65-110); HDL Direct 105 mg/dL; Potassium 4.2 mmol/L (3.4-5.0); Sodium 139 mmol/L (137-145); Triglycerides 54 mg/dL (<150)
[2024-08-27 22:49] LABS: LDL Cholesterol Direct 89 mg/dL
== END 2024-08-27 08:48 | disposition home or self-care (01) ==
LOC: ANHBWCLAB 08:47
PROVIDERS: PCP Family Medicine; Visit Provider Family Medicine
DX: E03.9 Hypothyroidism, unspecified (principal); E07.9 Disorder of thyroid, unspecified; E04.2 Nontoxic multinodular goiter; R74.8 Abnormal levels of other serum enzymes; Z00.00 Encounter for general adult medical examination without abnormal findings
CPT/HCPCS: 36415; 80053; 80061; 84443; 85025

== ENCOUNTER 2025-02-14 08:56 | Outpatient (CLI) | payer OTHER, SELFPAY ==
--- OUTSIDE RECORDS SUMMARY | 2025-02-14 09:31 | XMS_ITS | Clinical Summary ---
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 Gender Identity Not on file Sexual Orientation [...] 2:34 PM CDT Height 165.1 cm (5' 5) 08/31/2023 2:34 PM CDT Body Mass Index 26.79 08/31/2023 2:34 PM CDT Plan of Treatment Health Maintenance Due Date Last Done Comments Cervical Cancer Screening 1977 Colon Cancer Screening-Colonoscopy 1977 Depression Screening 1977 Hepatitis C Screening 1977 Hepatitis B Screening 07/17/1995 Regular Well Visit/Exam 18-64 07/17/1995 Breast Cancer Screening-Mammogram 05/12/2023 023 Covid-19 Vaccine (2 - 2024-2 6 season) 2024 12/18/2020 Influenza Vaccine (#1) 2024 DTaP/Tdap/Td Vaccine (2 - Td or Tdap) 08/30/2033 08/31/2023 Pneumococcal vaccine <65 Aged Out No longer eligible based on patient's age to complete this topic Insurance [facility] CHOICE PLUS [facility] H[facility]/PPO Address: [address] [place] [address] [facility] CHOICE PLUS [facility] H[facility]/PPO Address: [address] [place], [place] [phone] WORKERS COMPENSATION GENERIC Member Subscriber Plan / Payer (Ef fective 2023-Present) Name:Kim Pacheco Relation to Subscriber:Employee Name:HERMES DIAZ Address: [address] [place] [address] Payer ID:[id number] Group ID:Not on file Type:WORKERS COMPENSATION Address: [address] [place] [id number] Advance Directives For more information, please contact: [phone] * Full Code (Latest Code Status on File) Date Activated Date Inactivated Comments 06/14/2022 3:10 PM 06/15/2022 3:28 PM Care Teams Finish Mender Relationship Specialty Start Date End Date Papa Chowdhury MD PCP - General Family Practice 06/14/22
--- OUTSIDE RECORDS SUMMARY | 2025-02-14 09:31 | XMS_ITS | Data Portability ---
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 [email or web address] Not available 02/06/2024 11:10:50 Plan of Treatment Reminders Order Date Submit Date Provider Last Modified By Organization Details Last Modified Time Details Appointments None recorded . Lab pregnanc y test, urine 2021 022 geraldine [place], [address], [place], [address], 10:41:00 Referral None recorded . Procedures None recorded . Surgeries None recorded . Imaging US, pelvis, complete 2021 geraldine [facility], [address], [place], [address], 3 16:53:42 US, pelvis 2021 022 [email or web address] [place], [address], [place], [address], 2 20:25:08 US, transvag inal 2021 022 [email or web address] [place], [address], [place], [address], 2 20:25:08 US, pelvis, complete 2021 022 [email or web address] [place], [place], [address], 2 12:20:37 MAMMO, screenin g, bilatera l 2021 022 [facility], [address], [place], [address], 3 07:24:34 Medication Orders None recorded . [...] Recei simeon: 12/01 0822 First Scree n: Sherm an, Mervat Speci men: Scree alireza Pap - Image d, Cervi x STATE MENT OF ADEQU ACY: Satis facto ry for evalu ation Trans forma tion zone compo nent prese nt FINAL DIAGN OSIS: Negat drew for Intra epith elial Lesio n or Mak العراقي (NIL) . Shift in nuria sugge stive of bacte rial vagin osis. Elect lucho zelaya stacy d by Mervat Crespo on [...] renti ation . COMME NT: Slide scree william rebecca cantrell due to rejec tion by the [...] jermaine and/o r histo rical findi ngs, fur er inves tigat ion is recom elie boyce, as clini austen burrows nted. Not Available [facility] [address] [place], [address], 12/03/2021 22:17:42 12/01/19 22 11/30/2021 CT/GC (YADY) , THINP REP VIAL chlamydia trachomatis, PCR Negati ve negati ve Not Available [facility] [address] [place], [address], 12/03/2021 22:17:43 12/01/19 22 11/30/2021 CT/GC (YADY) , THINP REP VIAL neisseria gonorrhoeae, PCR Negati ve negati ve Not Available [facility] [address] [place], [address], 12/03/2021 22:17:43 12/01/19 22 11/30/2021 TRICH OMONA S VAGIN MAURO (RRNA ) trichomonas vaginalis ribosomal RNA (rrna) Negati ve negati ve Not Available [facility] [address] [place], [address], 12/03/2021 22:17:43 12/01/19 22 11/30/2021 pregn rubén test, urine HCG negati ve Not Available [place] [address], [place], [address], 11/30/2021 10:40:46 02/06/20 24 02/06/2024 IMAGE GUIDE D PAP AND HPV REGAR DLESS image guided Pap, HPV regardless of Pap result SEE RESULT S BELOW CASE REPOR T: Cytol ogy Gynec ologi jermaine Repor t Case: [id number] Autho rimarcin g Provi eliseo: Dariel Schultz MD Colle cted: 02/05 1128 Order ing Locat ion: [place] Patho logkadi Recei simeon: 02/06 0620 First Zheng n: Neva Baird Speci men: Zheng lay Pap - Image d, Cervi x STATE MENT OF ADEQU ACY: Satis facto ry for evalu ation Trans forma tion zone compo nent prese nt ----- ----- ----- ----- ----- ----- ----- ----- ----- ----- ----- ----- ----- ----- ----- ----- ----- ---- FINAL DIAGN OSIS: Negat drew for Intra epith elial Vasquez mcgowan or Mak العراقي ([facility]) . Shift in nuria sugge stive of bacte rial vagin osis. Elect lucho zelaya stacy d by Neva Baird ica on 02/11 at 4:26 PM ----- ----- ----- ----- ----- ----- [...] ut diffe renti ation . COMME NT: This speci men was revie wed by a Cytot echno logis t and/o r Patho logis t (as indic ated in this repor t) after evalu ation using the Thinp rep Imagi ng Syste m. [...] tigat ion is recom elie d, as clini austen warra nted. Not Available [facility] (Lab) [address], [place], [address], 02/12/2024 17:30:20 12/18/19 22 12/17/2021 US, pelvi s No observ ation record ed. [email or web address] [place] [address], [place], [address], 12/17/2021 13:08:26 12/18/19 22 12/17/2021 US, trans tristan al No observ ation record ed. [email or web address] [place] [address], [place], [address], 12/17/2021 13:08:36 12/18/19 22 12/17/2021 US, pelvi s No observ ation record ed. [address]pidio [address], [facility], [place], [address], 12/21/2021 09:52:53 05/12/19 23 05/11/2022 MAMMO , scree alireza, bilat eral No observ ation record ed. [email or web address] [facility] [address], [place], [address], 05/17/2022 17:09:03 02/07/20 24 02/07/2024 MAMMO , scree alireza, bilat eral No observ ation record ed. [facility] [address], [place], [address], 02/22/2024 04:02:16 Result Notes None recorded. Problems Name Problem SNOMED Code Status Onset Date Resolution Date Notes Provider Name and Address Organization Details Recorded Time Speciali zed medical examinat ion Completed 201001/11/2012 Gynecolo gical Examinat ion;Danilo rded Elsewher e: No Locat ion: [facility] S ource: EHR Theater Manager tyrell: N Wandati ce ID: 0001 Jarret lable Time: 09:30:00 AM Not Available [facility] 0 21:23:40 Overweig ht 669547386 Active 2010 Overweig ht;Recor ded Elsewher e: No Locat ion: [facility] S ource: EHR Theater Manager tyrell: N Wandati ce ID: 0001 Jarret lable Time: 09:30:00 AM Not Available [facility] 0 21:23:40 Screenin g for malignan t neoplasm of cervix Active 2010 Screenin g for malignan t neoplasm s of the cervix;R ecorded Elsewher e: No Locat ion: [facility] S ource: EHR Theater Manager tyrell: N Practi ce ID: 0001 Jarret lable Time: 09:30:00 AM Not Available [facility] 0 21:23:40 Removal of intraute rine device Completed 201101/11/2012 REMOVAL OF IUD;Danilo rded Elsewher e: No Locat ion: [facility] S ource: EHR Theater Manager tyrell: N Wandati ce ID: 0001 Jarret lable Time: 09:30:00 AM Not Available [facility] 0 21:23:39 Insertio n of intraute rine contrace ptive device Completed 201101/11/2012 INSERTIO N OF IUD;Danilo rded Elsewher e: No Locat ion: [facility] S ource: EHR Theater Manager tyrell: N Practi ce ID: 0001 Jarret lable Time: 08:45:00 AM Not Available [facility] 0 21:23:39 Breast lump 35611207 Active 2013 Lump or mass in breast;P ractice ID: 0001 Not Available [facility] 0 21:23:38 Screenin g for malignan t neoplasm of rectum Active 2013 Screenin g for malignan t neoplasm s of the rectum;P ractice ID: 0001 Not Available [facility] 0 21:23:38 Eruption 599402637 Active 2014 Rash and other nonspeci fic skin eruption ;Practic e ID: 0001 Not Available [facility] 0 21:23:38 Localize d swelling , mass and lump, neck Active 2015 Localize d swelling , mass and lump, neck;Pra ctice ID: 0001 Not Available [facility] 0 21:23:[address] Concept Active 2015 Encntr for physical education professor exam (general ) (routine ) w/o abn findings ;Practic e ID: 0001 Not Available [facility] 0 21:23:[address] Concept Active 2015 Well woman check w/ abnormal finding; Recorded Elsewher e: No Locat ion: [facility] S ource: EHR Theater Manager tyrell: N Practi ce ID: 0001 Jarret lable Time: 09:30:00 AM Not Available [facility] 0 21:23:39 Removal of intraute rine device Active 2017 Encounte r for removal of intraute rine contrace ptive device;P ractice ID: 0001 Not Available [facility] 0 21:23:38 Emotiona l state finding Active 2018 Other specifie d anxiety disorder s;Practi ce ID: 0001 Not Available [facility] 0 21:23:[address] Concept Active 2018 Encntr for general adult medical exam w/o abnormal findings ;Recorde d Elsewher e: No Locat ion: [facility] S ource: EHR Theater Manager tyrell: N Practi ce ID: 0001 Jarret lable Time: 10:30:00 AM Not Available [facility] 0 21:23:39 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;Re corded Elsewher e: No Locat ion: [facility] S ource: EHR Theater Manager tyrell: N Practi ce ID: 0001 Jarret lable Time: 10:30:00 AM Not Available [facility] 0 21:23:40 Insertio n of intraute rine contrace ptive device Active 2018 Encounte r for insertio n of intraute rine contrace ptive device;P ractice ID: 0001 Not Available [facility] 0 21:23:39 Pregnanc y test negative 118890041 Active 2018 Encounte r for pregnanc y test, result negative ;Practic e ID: 0001 Not Available [facility] 0 21:23:39 Contrace ptive sheath status 017553680 Active 2018 Encounte r for routine checking of intraute rine contrace p dev;Prac srinivasa ID: 0001 Not Available [facility] 0 21:23:39 Problem Notes None recorded. Procedures Surgical History Date Name Laterality Status Provider Name and Address Organization Details Recorded Time 3 Date of Last Mammogram completed Irene Crook [facility] 02/06/2024 11:19:08 2 Date of Last Pap Smear completed Hafsa Mejia [facility] 12/27/2023 12:03:26 Imaging Results None recorded. Procedure Notes None recorded. Medical Equipment None Reported. Allergies No known drug allergies Medications Name Sig Start Date Stop Date Status Note LastModified by Organization Details LastModified Time Mirena 21 mcg/24 hr (up to 8 years) 52 mg intrauter ine device 2018 active Prescrib ed Elsewher e: Yes Loca tion: [facility] odify By: nusrat baez DateTime : 09/19/19 19 01:00:00 PM Not Available Not Available Not Available trazodone 50 mg tablet TAKE 1 TABLET BY MOUTH EVERY DAY AT BEDTIME NEEDED FOR INSOMNIA 02/05 completed Not Available Not Available Not Available Diflucan 150 mg tablet take 1 tablet by oral route once 08/24 completed Prescrib ed Elsewher e: No Locat ion: [facility] odify By: amlucy atkinsonuntgriffin DateTime : 07/30/19 15 04:30:00 PM Not Available Not Available Not Available liothyron ine 5 mcg tablet take 1 tablet by oral route every day 11/30 completed Prescrib ed Elsewher e: Yes Loca tion: [facility] odify By: nusrat baez DateTime : 08/25/19 19 10:30:00 AM Not Available Not Available Not Available levothyro xine 125 mcg tablet TAKE 1 TABLET BY MOUTH DAILY active Not Available Not Available No t Available nystatin 100,000 unit/gram topical cream apply by topical route 2 times every day to the affected area(s) 11/30 completed Prescrib ed Elsewher e: No Locat ion: [facility] odify By: tgingbruce h Mello thompson DateTime : 07/30/19 15 04:30:00 PM Not Available Not Available Not Available Vitamin D2 1,250 mcg (50,000 unit) capsule take 1 capsule by oral route every week 08/24 completed Prescrib ed Elsewher e: No Locat ion: [facility] odify By: nusrat baez DateTime : 06/17/19 16 01:25:07 PM Not Available Not Available Not Available calcitrio l 0.25 mcg capsule 12/26 completed Not Available Not Available Not Available Ortho Tri-Cycle n (28) 0.18 mg(7)/0.2 15mg(7)/0 .25 mg(7)-0.0 35 mg tablet take 1 tablet by oral route every day 01/09 completed Prescrib ed Elsewher e: No Locat ion: [facility] odify By: humaira thompson DateTime [...] Prescrib ed Elsewher e: No [facility] By: chuck carter DateTime : 08/25/19 19 10:30:00 AM Not Available Not Available Not Available venlafaxi ne ER 37.5 mg tablet,ex tended release 24 hr take 1 tablet by oral route every day in the morning at the same time each day with food 08/24 completed Prescrib ed Elsewher e: Yes Loca [facility]ion[facility]ify By: chuck townsender DateTime : 08/25/19 19 10:30:00 AM Not Available Not Available Not Available [employer] At-Home COVID-19 Test kit TEST DIRECTED TODAY 12/26 completed Not Available Not Available Not Available Vitals Date Recorded Body height Body mass index (BMI) Body weight Systolic And Diastolic Systolic And Diastolic Provider Name and Address Organization Details Last Updated DateTime 11/30/2021 165.1 cm 0.2 kg/m2 544.31 g 146/90 mm[Hg] 136/90 mm[Hg] Millicent Weir [facility] 2 10:54:06 Date Recorded Body height Body mass index (BMI) Body weight Systolic And Diastolic Provider Name and Address Organization Details Last Updated DateTime 12/21/2021 165.1 cm 33.3 kg/m2 15405.91 g 156/91 mm[Hg] Millicent Weir [facility] 12/21/2021 09:39:13 Date Recorded Body height Body mass index (BMI) Body weight Systolic And Diastolic Provider Name and Address Organization Details Last Updated DateTime 12/27/2023 165.1 cm 28.5 kg/m2 50783.3 g 159/80 mm[Hg] Hafsa Roberto [facility] 12/27/2023 12:02:09 Date Recorded Body height Body mass index (BMI) Body weight Systolic And Diastolic Provider Name and Address Organization Details Last Updated DateTime 02/06/2024 165.1 cm 29.3 kg/m2 16680.54 g 130/77 mm[Hg] Irene Crook [facility] 02/06/2024 11:14:28 Social History Question Answer Notes LastModified by Organizat ion Details LastModified Time Tobacco Smoking Status Current Every Day Smoker Millicent Weir [facility], [facility] 12/21/2021 09:39:22 Do You Have An Advance Directive? No Information n ot available 12/21/2021 Are You Blind Or Do You Have Difficulty Seeing? No Information n ot available 11/30/2021 What Is Your Level Of Caffeine Consumption? Heavy Information not available 12/21/2021 How Much Tobacco Do You Chew? None Information not available 12/21/2021 In The 14 Days Before Symptom Onset, Have You Had Close Contact With A Laboratory-confirm ed COVID-19 While That Case Was Ill? No Information n ot available 12/21/2021 In The 14 Days Before [...] Of Diet Are You Following? REGULAR Information n ot available 11/30/2021 What Is The Highest Grade Or Level Of School You Have Completed Or The Highest Degree You Have Received? [id number] Information not available 12/21/2021 Are There Any [...] PPD Information not available 12/21/2021 Do You Use Sunscreen Routinely? No Information not available 12/21/2021 Have You Used IV Drugs? No Information not available 12/21/2021 Do You Have Difficulty Walking Or Climbing Stairs? No Information not available 12/21/2021 Sex: Unknown Functional Status Question Answer Note LastModified by Organizat ion Details LastModified Time Do you use any illicit or recreational drugs? No Information not available 12/21/2021 What is your level of alcohol consumption? Occasional Information not available 11/30/2021 Are you able to walk independently without assistance or assistive devices? YESWOREST Information not available 11/30/2021 Are you able to care for yourself independently? Yes Information not available 12/21/2021 What is your occupation? [employer] Information not available 12/21/2021 Do you have difficulty dressing, bathing, grooming, or toileting? No Information not available 12/21/2021 What is your exercise level? Occasional Information not available 12/21/2021 Mental Status Question Answer Note LastModified by Organization D etails LastModified Time Do you feel stressed (tense, restless, nervous, or anxious, or unable to sleep at night)? [id number] Information not available 12/21/2021 Family History Relationship Description Onset Age of this Age Resolved Age Notes LastModified by Organization Details LastModified Time Brother Disorder of thyroid gland vschroedter Not available 05/2021 10:31:01 Notes:Father: Diabetes melli tus, Hypertension Mother: Cancer, breast, Diabetes mellitus [...] Diagnosis SNOMED-CT Code Diagnosis ICD10 Code Diagnosis IMO Codes Diagnosis Note [id number] Elke GenaroheatherDELGADO [place] [address] [address] 11/30/2021 10:06:06 11/30/2021 11:23:45 Contraception care management 047373403 Z30.9 Screening for malignant neoplasm of breast 562095331 Z12.39 Gynecologi c examination 42913385 Z01.419 Suggested Calcium with Vitamin D 1200-1500m g daily. Patient advised to get an annual flu shot in the fall and she could obtain at [facility] or [facility] clinic. Also to obtain TDap vaccinatio n [...] and review of plan of care. Dyspareunia 45348697 N94 .10 [id number] Bashir Schultz MD [place] [address],[place] [address] 12/17/2021 10:54:09 12/17/2021 11:55:47 Dyspareunia 92072391 N94.10 [id number] DELGADO Alvarado [place] [address],[place] [address] 12/21/2021 09:33:35 12/21/2021 10:03:44 Dyspareunia 62843134 N94.10 We discussed the pelvic u/s result [...] chest pain, etc. [id number] Bashir Schultz MD [place] [address],[place] [address] 12/27/2023 11:52:22 12/27/2023 22:36:36 [id number] Bashir Schultz MD [place] [address],[place] [address] 02/06/2024 10:52:57 02/06/2024 11:55:35 Gynecologic examination 54119646 Z01.419 Annual gynecologi jermaine exam performed. Patient [...] None Recorded Advance Directives Directive N: Payers Insurance Date Sequence Insurance Name Policy Number Policy Cruz Covered Member ID Cruz Member ID Guarantor Name 02/05/2024 1 [facility] [id number] Kim Pacheco [id number] Kim Pacheco Notes Date Note Type Note Provider Name and Address Organization Details Recorded Time 12/01/19 22 text/ht ml Annual GYNReported by PatientGenitourinary symptomsFor menstrual cycle, patient reportsnormal menses. For urinary symptoms, patient reportsno hematuriaandno incontinence. For vulva, patient reportsno genital lesion. For vagina, patient reportsnormal vaginal discharge.Breast symptomsFor breast, patient reportsno breast pain,no breast lump, andno nipple discharge.ContraceptionFor current contraception, patient reportsintrauterine device (iud).Endocrine symptomsFor sexual complaints, patient reportsno sexual complaints,no pain during intercourse, andnormal libido. For menopausal symptoms, patient reportsno menopausal symptomsandnormal vaginal lubrication.Psychological symptomsFor psychological symptoms, patient reportsno depression,no anxiety, andno pmdd.Preventative measuresFor preventive measures, patient reportsencourage self breast examination,encourage regular exercise,encourage no tobacco use, andencourage regular mammograms starting age 40. Pain with intercourse for years, pain is mostly once intercourse is over and then resolves on its own after a few hours.Same partner x 8 years DELGADO [place] [address], [place], [address], [place] [facility] 11/30/2021 11:04:10 12/22/19 22 text/ht ml Patient presents for u/s f/u due to pain with intercourseDoing well since MARANDA, has not felt the pain during intercourse sinceNo vaginal symptomsNo irregular bleeding DELGADO [place] [address], [place], [address], [facility] 12/21/2021 09:58:23 12/27/19 24 text/ht ml Annual GYNReported by Patient Bashir Schultz MD [address], [place], [address], [facility] 12/27/2023 22:36:34 02/06/20 24 text/ht ml Annual GYNReported by PatientHistoryFor history, patient reportsno gynecologic complaints.Genitourinary symptomsFor menstrual cycle, patient reportsnormal menses. For urinary symptoms, patient reportsno hematuriaandno incontinence. For vulva, patient reportsno genital lesion. For vagina, patient reportsnormal vaginal discharge.Breast symptomsFor breast, patient reportsno breast painandno breast lump.ContraceptionFor current contraception, patient reportssatisfied with current contraceptionandintrauterine device (iud).Endocrine symptomsFor sexual complaints, patient reportsno sexual complaintsandno pain during intercourse. For menopausal symptoms, patient reportsno menopausal symptomsandnormal vaginal lubrication.Psychological symptomsFor psychological symptoms, patient reportsdepressionandanxiety([facility]).Preventative measuresFor preventive measures, patient reportsencourage self breast examinationandencourage regular exercise. Bashir Schultz MD [address], [place], [address], [facility] 02/06/2024 11:51:57 OBGyn Episode Ob Episode Information Episode Created Date Number of Fetuses Patient Bloodtype Patient rh Status Prepregnancy Weight lbs Domestic Partner Domestic Partner Phone Father Name Front End Web Designer Status 12/01/19 22 1 CLOSED Fetus Data First Name Last Name Admitted to NICU Weight (g) Sex Living Outcome Pediatric Complications Fetus ID Race Codes Race Delivery Type 3005.04 7 M Full Term [id number] Vaginal Delivery Rebel Calculation Initial Rebel Date [...] Domestic Partner Domestic Partner Phone Father Name Front End Web Designer Status 12/01/19 22 1 CLOSED Fetus Data First Name Last Name Admitted to NICU Weight (g) Sex Living Outcome Pediatric Complications Fetus ID Race Codes Race Delivery Type 2948.34 8 M Full Term [id number] Vaginal Delivery Rebel Calculation Initial Rebel Date [...]
[2025-02-14 19:37] LABS: Hematocrit 40.9 % (37.0-47.0); Hemoglobin 13.1 g/dL (12.0-15.0); Immature Granulocyte Percent A 0.2 % (0-0.5); Lymphocytes Absolute Auto 1.07 K/mm3 (0.9-3.2); Mean Corpuscular HGB Conc 32.0 g/dl (32-36); Mean Corpuscular Hemoglobin 32.2 pg (26-34); Mean Corpuscular Volume 100.5 fl (80-100); Nucleated Red Blood Cells Absolute Auto 0.000 K/mm3 (0.0-0.012); Nucleated Red Blood Cells Perc 0.0 % (0.0-0.2); Platelet Count Result 248 k/mm3 (150-375); Red Blood Count 4.07 M/mm3 (4.2-5.4); White Blood Count 4.7 K/mm3 (4.5-10.0)
[2025-02-14 19:43] LABS: Alanine Aminotransferase 14 U/L (6-35); Albumin Level 4.3 g/dL (3.5-5.1); Alkaline Phosphatase 48 U/L (38-126); Anion Gap 8 mmol/L (4-12); Aspartate Amino Transferase 47 U/L (14-36); Bilirubin,Total 0.8 mg/dL (0.2-1.3); Blood Urea Nitrogen 16 mg/dL (7-17); Calcium 7.6 mg/dL (8.4-10.2); Carbon Dioxide 24 mmol/L (22-30); Chloride 102 mmol/L (98-107); Estimated Glomerular Filt Rate > 60; Glucose 70 mg/dL (65-110); Potassium 4.0 mmol/L (3.4-5.0); Sodium 134 mmol/L (137-145); Total Protein 7.7 g/dL (6.3-8.2)
[2025-02-14 19:50] LABS: Free T4 Free Thyroxine 1.14 ng/dL (0.78-2.19)
[2025-02-14 20:22] LABS: Thyroid Stimulating Hormone 28.500 uIU/mL (0.465-4.680)
== END 2025-02-14 08:57 | disposition home or self-care (01) ==
PROVIDERS: PCP Family Medicine; Visit Provider Family Medicine
DX: F32.9 Major depressive disorder, single episode, unspecified (principal); F41.9 Anxiety disorder, unspecified; E03.9 Hypothyroidism, unspecified; E04.2 Nontoxic multinodular goiter; Z00.00 Encounter for general adult medical examination without abnormal findings
CPT/HCPCS: 36415; 80053; 84439; 84443; 85025

== ENCOUNTER 2025-02-19 12:33 | Outpatient (CLI) | payer OTHER, SELFPAY ==
--- NOTE | ~2025-02-19 | US_ITS ---
US thyroid 02/19/2025 12:49 Indication: Thyroid disorder Procedure: High-resolution ultrasound of the neck/thyroid fossa Comparison: Ultrasound dated 03/20/2022 Findings: There are changes of previous bilateral thyroidectomy. No abnormality of the thyroid fossa is identified. No cervical lymphadenopathy. Impression: 1: Normal ultrasound of the thyroid fossa without underlying mass. Reviewed, dictated and finalized at location O. Impression: 1: Normal ultrasound of the thyroid fossa without underlying mass.
== END 2025-02-19 12:34 | disposition home or self-care (01) ==
LOC: MICIMG 12:36
PROVIDERS: Visit Provider Family Medicine
DX: E07.9 Disorder of thyroid, unspecified (principal); E04.2 Nontoxic multinodular goiter
CPT/HCPCS: 76536

== ENCOUNTER 2025-03-25 12:26 | Outpatient (CLI) | payer OTHER, SELFPAY ==
--- NOTE | ~2025-03-25 | US_ITS ---
ULTRASOUND ABDOMEN LIMITED (RIGHT UPPER QUADRANT) Clinical History: R74.01 - Elevation of levels of liver transaminase levels Comparison: None Technique: Right upper quadrant sonography Findings: Liver: Enlarged. Echogenic. No intrahepatic biliary ductal dilatation. Normal hepatopedal flow main portal vein. Common Duct: 10 mm. Gallbladder: No stones. No wall thickening. No pericholecystic fluid. Pancreas: Obscured by bowel gas. IMPRESSION: 1. Hepatomegaly, with steatosis and/or hepatocellular disease. 2. Common bile duct dilated. Consider MRCP. 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
--- OUTSIDE RECORDS SUMMARY | 2025-03-25 14:16 | XMS_ITS | Data Portability ---
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 [email or web address] Not available 02/06/2024 11:10:50 Plan of Treatment Reminders Order Date Submit Date Provider Last Modified By Organization Details Last Modified Time Details Appointments None recorded . Lab pregnanc y test, urine 2021 022 [email or web address] [address], [address], [place], [address], 10:41:00 Referral None recorded . Procedures None recorded . Surgeries None recorded . Imaging US, pelvis, complete 2021 [email or web address] [facility], [address], [place], [address], 3 16:53:42 US, pelvis 2021 022 [email or web address] [address], [address], [place], [address], 2 20:25:08 US, transvag inal 2021 022 [email or web address] [address], [address], [place], [address], 2 20:25:08 US, pelvis, complete 2021 022 [email or web address] [address], [address], [place], [address], 2 12:20:37 MAMMO, screenin g, bilatera l 2021 022 [facility], [address], [place], [address], 3 07:24:34 Medication Orders None recorded . [...] clini austen burrows nted. Not Available [facility] [address] [place], [address], 12/03/2021 22:17:42 12/01/19 22 11/30/2021 CT/GC (YADY) , THINP REP VIAL chlamydia trachomatis, PCR Negati ve negati ve Not Available [facility] [address] [place], [address], 12/03/2021 22:17:43 12/01/19 22 11/30/2021 CT/GC (YADY) , THINP REP VIAL neisseria gonorrhoeae, PCR Negati ve negati ve Not Available [facility] [address] [place], [address], 12/03/2021 22:17:43 12/01/19 22 11/30/2021 TRICH OMONA S VAGIN MAURO (RRNA ) trichomonas vaginalis ribosomal RNA (rrna) Negati ve negati ve Not Available [facility] [address] [place], [address], 12/03/2021 22:17:43 12/01/19 22 11/30/2021 pregn rubén test, urine HCG negati ve Not Available [facility] [address], [place], [address], 11/30/2021 10:40:46 02/06/20 24 02/06/2024 IMAGE GUIDE [...] epith elial Vasquez mcgowan or Mak العراقي ([facility]) . Shift in nuria sugge stive of [...] as clini austen warra nted. Not Available [facility] (Lab) [address], [place], [address], 02/12/2024 17:30:20 12/18/19 22 12/17/2021 US, amy s No observ ation record ed. [email or web address] [facility] [address], [place], [address], 12/17/2021 13:08:26 12/18/19 22 12/17/2021 US, trans tristan al No observ ation record ed. [email or web address] [facility] [address], [place], [address], 12/17/2021 13:08:36 12/18/19 22 12/17/2021 US, pelvi s No observ ation record ed. elpidio Juarez [address], [place], [address], 12/21/2021 09:52:53 05/12/19 23 05/11/2022 MAMMO , scree alireza, bilat eral No observ ation record ed. [email or web address] [facility] [address], [place], [address], 05/17/2022 17:09:03 02/07/20 24 02/07/2024 MAMMO , scree alireza, bilat eral No observ ation record ed. [facility] [address], [place], [address], 02/22/2024 04:02:16 Result Notes None recorded. Problems Name Problem SNOMED Code Status Onset Date Resolution Date Notes Provider Name and Address Organization Details Recorded Time Speciali zed medical examinat ion Completed 201001/11/2012 Gynecolo gical Examinat ion;Danilo rded Elsewher e: No Locat ion: [facility] S ource: EHR Stretcher Helper tyrell: N Wandati ce ID: 0001 Jarret lable Time: 09:30:00 AM Not Available [facility] 0 21:23:40 [place] ht 074031550 Active 2010 Overweig ht;Recor ded Elsewher e: No Locat ion: [facility] S ource: EHR Stretcher Helper tyrell: N Wandati ce ID: 0001 Jarret lable Time: 09:30:00 AM Not Available [facility] 0 21:23:40 Screenin g for malignan t neoplasm of cervix Active 2010 Screenin g for malignan t neoplasm s of the cervix;R ecorded Elsewher e: No Locat ion: [facility] S ource: EHR Stretcher Helper tyrell: N Practi ce ID: 0001 Jarret lable Time: 09:30:00 AM Not Available [facility] 0 21:23:40 Removal of intraute rine device Completed 201101/11/2012 REMOVAL OF IUD;Danilo rded Elsewher e: No Locat ion: [facility] S ource: EHR Stretcher Helper tyrell: N Wandati ce ID: 0001 Jarret lable Time: 09:30:00 AM Not Available [facility] 0 21:23:39 Insertio n of intraute rine contrace ptive device Completed 201101/11/2012 INSERTIO N OF IUD;Danilo rded Elsewher e: No Locat ion: [facility] S ource: EHR Stretcher Helper tyrell: N Practi ce ID: 0001 Jarret lable Time: 08:45:00 AM Not Available [facility] 0 21:23:39 Breast lump 16326950 Active 2013 Lump or mass in breast;P ractice ID: 0001 Not Available [facility] 0 21:23:38 Screenin g for malignan t neoplasm of rectum Active 2013 Screenin g for malignan t neoplasm s of the rectum;P ractice ID: 0001 Not Available [facility] 0 21:23:38 Eruption 167141015 Active 2014 Rash and other nonspeci fic skin eruption ;Practic e ID: 0001 Not Available [facility] 0 21:23:38 Localize d swelling , mass and lump, neck Active 2015 Localize d swelling , mass and lump, neck;Pra ctice ID: 0001 Not Available [facility] 0 21:23:[address] Concept Active 2015 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 ) (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 ) w/o abn findings ;Practic e ID: 0001 Not Available [facility] 0 21:23:[address] Concept Active 2015 Well woman check w/ abnormal finding; Recorded Elsewher e: No Locat ion: [facility] S ource: EHR Stretcher Helper tyrell: N Practi ce ID: 0001 Jarret [...] ;Recorde d Elsewher e: No Locat ion: [facility] S ource: EHR Stretcher Helper tyrell: N Practi ce ID: 0001 Jarret lable Time: 10:30:00 AM Not Available [facility] 0 21:23:39 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;Re corded Elsewher e: No Locat ion: [facility] S ource: EHR Stretcher Helper tyrell: N Practi ce ID: 0001 Jarret lable Time: 10:30:00 AM Not Available [facility] 0 21:23:40 Insertio n of intraute rine contrace ptive device Active 2018 Encounte r for insertio n of intraute rine contrace ptive device;P ractice ID: 0001 Not Available [facility] 0 21:23:39 Pregnanc y test negative 597609881 Active 2018 Encounte r for pregnanc y test, result negative ;Practic e ID: 0001 Not Available [facility] 0 21:23:39 Contrace ptive sheath status 737286846 Active 2018 Encounte r for routine checking of intraute rine contrace p dev;Prac srinivasa ID: 0001 Not Available [facility] 0 21:23:39 Problem Notes None recorded. Procedures Surgical History Date Name Laterality Status Provider Name and Address Organization Details Recorded Time 3 Date of Last Mammogram completed Irene Crook [facility] 02/06/2024 11:19:08 2 Date of Last Pap Smear completed Hafsa Mejia [facility] 12/27/2023 12:03:26 Imaging Results None [...] [facility] odify By: nusrat atkinsonuntgriffin DateTime : 07/30/19 15 04:30:00 PM Not Available Not Available Not Available liothyron ine 5 mcg tablet take 1 tablet by oral route every day 11/30 completed Prescrib ed Elsewher e: Yes Loca tion: [facility]ify By: nusrat atkinsonuntgriffin DateTime : 08/25/19 19 10:30:00 AM Not [...] [facility]ify By: [email or web address] thompson DateTime : 07/30/19 15 04:30:00 PM Not Available Not Available Not Available Vitamin D2 1,250 mcg (50,000 unit) capsule take 1 capsule by oral route every week 08/24 completed Prescrib ed Elsewher e: No Locat ion: [facility] odify By: nusrat atkinsonuntgriffin DateTime : 06/17/19 16 01:25:07 PM Not [...] Locat ion: [facility] odify By: chuck carter DateTime : 08/25/19 19 10:30:00 AM Not Available Not Available Not Available venlafaxi ne ER 37.5 mg tablet,ex tended release 24 hr take 1 tablet by oral route every day in the morning at the same time each day with food 08/24 completed Prescrib ed Elsewher e: Yes Loca tion: [facility] odify By: chuck townsender DateTime : [...] 544.31 g 146/90 mm[Hg] 136/90 mm[Hg] Millicent Wier [facility] 2 10:54:06 Date Recorded Body height Body mass index (BMI) Body weight Systolic And Diastolic Provider Name and Address Organization Details Last Updated DateTime 12/21/2021 165.1 cm 33.3 kg/m2 30962.91 g 156/91 mm[Hg] Millicent Weir [facility] 12/21/2021 09:39:13 Date Recorded Body height Body mass index (BMI) Body weight Systolic And Diastolic Provider Name and Address Organization Details Last Updated DateTime 12/27/2023 165.1 cm 28.5 kg/m2 54547.3 g 159/80 mm[Hg] Hafsa Roberto [facility] 12/27/2023 12:02:09 Date Recorded Body height Body mass index (BMI) Body weight Systolic And Diastolic Provider Name and Address Organization Details Last Updated DateTime 02/06/2024 165.1 cm 29.3 kg/m2 97596.54 g 130/77 mm[Hg] Irene Crook [facility] 02/06/2024 11:14:28 Social History Question Answer Notes LastModified by Organizat ion Details LastModified Time Tobacco Smoking Status Current Every Day Smoker Millicent Weir [facility], [facility] 12/21/2021 09:39:22 Do You Have [...] Or The Highest Degree You Have Received? [id number] Information not available 12/21/2021 Are There Any [...] not available 12/21/2021 What is your occupation? [employer] Information not available 12/21/2021 Do you have difficulty dressing, bathing, grooming, or toileting? No Information not available 12/21/2021 What is your exercise level? Occasional Information not available 12/21/2021 Mental Status Question Answer Note LastModified by Organization D etails LastModified Time Do you feel stressed (tense, restless, nervous, or anxious, or unable to sleep at night)? [id number] Information not available 12/21/2021 Family History Relationship Description Onset Age of this Age Resolved Age Notes LastModified by Organization Details LastModified Time Brother Disorder of thyroid gland [email or web address] Not available 05/2021 10:31:01 Notes:Father: Diabetes melli tus, Hypertension Mother: Cancer, breast, Diabetes mellitus Paternal grandfather: DVT LE Medical History Condition Response Allergies (Food, seasonal, environmental ) N Other N Drug/Latex Allergies/Reactions N Blood Transfusion N Breast Cancer N Dermatologic Disorders N Lung Disease N Defects or Inherited Disease N Breast Problem N Gestational Diabetes N Hematologic disorders N Anesthesia Complications N History of STI N Deep Vein Thrombosis N Polycystic ovary syndrome N Anxiety Disorder N Autoimmune disease N Arthritis N Polyps N Infertility N Acid Reflux (GERD) N History of abnormal pap N Cancer N Varicosities N Stroke N Neurologic/Epilepsy N Endometriosis N High Cholesterol N Fibromyalgia N Headaches N Kidney Disease N Heart Problems N Thyroid Problems N Kidney or Bladder Problems N GI Problems N Eating Disorder [...] ICD10 Code Diagnosis IMO Codes Diagnosis Note [id number] Elkechan VieiraDELGADO [facility] [address] [address] 11/30/2021 10:06:06 11/30/2021 11:23:45 Contraception care management 111932939 Z30.9 Screening for malignant neoplasm of breast 502181111 Z12.39 Gynecologi c examination 86026749 Z01.419 Suggested Calcium with Vitamin D 1200-1500m g daily. Patient advised to get an annual flu shot in the fall and she could obtain at [facility] or [facility] clinic. Also to obtain TDap vaccinatio n [...] and review of plan of care. Dyspareunia 03322277 N94 .10 [id number] Bashir Schultz MD [facility] [address],[place] [address] 12/17/2021 10:54:09 12/17/2021 11:55:47 Dyspareunia 79998567 N94.10 [id number] DELGADO Alvarado [facility] [address],[place] [address] 12/21/2021 09:33:35 12/21/2021 10:03:44 Dyspareunia 27972345 N94.10 We discussed the pelvic u/s result [...] chest pain, etc. [id number] Bashir Schultz MD [facility] [address],[place] [address] 12/27/2023 11:52:22 12/27/2023 22:36:36 [id number] Bashir Schultz MD [facility] [address],[place] [address] 02/06/2024 10:52:57 02/06/2024 11:55:35 Gynecologic examination 75395667 Z01.419 Annual gynecologi jermaine exam performed. Patient [...] Cruz Member ID Guarantor Name 02/05/2024 1 [facility] [id number] Kim Pacheco [id number] Kim Pacheco Notes Date Note Type Note [...] 10 years DELGADO Alvar[facility] [address], [place], [address], [place] [facility] 11/30/2021 11:04:10 12/22/19 22 text/ht ml Patient presents for u/s f/u due to pain with intercourseDoing well since MARANDA, has not felt the pain during intercourse sinceNo vaginal symptomsNo irregular bleeding DELGADO Alvarado [address], [place], [address], [facility] 12/21/2021 09:58:23 12/27/19 24 text/ht ml Annual GYNReported by Patient Bashir Schultz MD [address], [place], [address], [facility] 12/27/2023 22:36:34 02/06/20 24 text/ht ml [...] symptomsandnormal vaginal lubrication.Psychological symptomsFor psychological symptoms, patient reportsdepressionandanxiety([facility]).Preventative measuresFor preventive measures, patient reportsencourage self breast examinationandencourage regular exercise. Bashir Schultz MD [address], [place], [address], [facility] 02/06/2024 11:51:57 OBGyn Episode Ob Episode Information Episode Created Date Number of Fetuses Patient Bloodtype Patient rh Status Prepregnancy Weight lbs Domestic Partner Domestic Partner Phone Father Name Gis Web Developer Status 12/01/19 22 1 CLOSED Fetus Data First Name Last Name Admitted to NICU Weight (g) Sex Living Outcome Pediatric Complications Fetus ID Race Codes Race Delivery Type 3005.04 7 M Full Term [id number] Vaginal Delivery Rebel Calculation Initial Rebel Date [...] Domestic Partner Domestic Partner Phone Father Name Gis Web Developer Status 12/01/19 22 1 CLOSED Fetus Data First Name Last Name Admitted to NICU Weight (g) Sex Living Outcome Pediatric Complications Fetus ID Race Codes Race Delivery Type 2948.34 8 M Full Term [id number] Vaginal Delivery Rebel Calculation Initial Rebel Date [...]
--- OUTSIDE RECORDS SUMMARY | 2025-03-25 14:16 | XMS_ITS | Clinical Summary ---
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 Gender Identity Not on file Sexual [...] to complete this topic Insurance [facility] PLUS [facility] H[facility]/PPO Address: [address] [address] [place] [address] [facility] CHOICE PLUS [facility] H[facility]/PPO Address: [address] [address] [place] [address] WORKERS COMPENSATION GENERIC Advance Directives For more information, please contact: [phone] * Full Code (Latest Code Status on File) Date Activated Date Inactivated Comments 06/14/2022 3:10 PM 06/15/2022 3:28 PM Care Teams Is Technician Relationship Specialty Start Date End Date Papa Chowdhury MD PCP - General Family Practice 06/14/22
== END 2025-03-25 12:27 | disposition home or self-care (01) ==
PROVIDERS: PCP Family Medicine; Visit Provider Family Medicine
DX: R74.01 Elevation of levels of liver transaminase levels (principal); R16.0 Hepatomegaly, not elsewhere classified
CPT/HCPCS: 76705